=== PATIENT | female | born 1975 | race Hispanic/Latino ===

== ENCOUNTER 2016-07-28 14:03 | Inpatient (IN) | payer MEDICARE, MEDICAID ==
[2016-07-28 14:03] VITALS: BMI 24.6
[2016-07-28] MEDS ORDERED: Sodium Chloride 0.9% 1,000 ML IV STA (15:02)
--- NOTE | 2016-07-28 15:02 | ED PDOC ---
Arrival/HPI - General Chief Complaint: GI Problem Time Seen by Provider: 07/28/16 14:27 Historian: Patient - History of Present Illness Narrative History of Present Illness (Text): 07/28/16 14:52 40 y/o female, pmh including ulcerative colitis/chronic diarrhea/chronic GI bleed through rectum stool for the past 4 months, nkda, c/o feeling fatigue and tired for the past 2 days. Pt. stated that she has chronic ulcerative colitis diarrhea, always feeling fatigue but more fatigue and tired for the past 2 days which she stated that she almost pass out but didnt, no nausea or vomiting, no chest pain or shortness of breath, no palpitation, no night sweat, no bloody stool but admits heavy period lately, no fever or chills, no abdominal pain, no other medical or psychological complaints. Past Medical History - Provider Review Nursing Documentation Reviewed: Yes - Past History Past History: No Previous - Infectious Disease Hx of Infectious Diseases: None - Tetanus Immunization Tetanus Immunization: Unknown - Cardiac Hx Cardiac Disorders: No Hx Pacemaker: No - Pulmonary Hx Respiratory Disorders: No Hx Tuberculosis: No - Neurological Hx Neurological Disorder: No HX Cerebrovascular Accident: No Hx Migraine: No Hx Seizures: No - HEENT Hx HEENT Disorder: No Other/Comment: wears rx glasses - Renal Hx Renal Disorder: No - Endocrine/Metabolic Hx Endocrine Disorders: No Hx Hyperthyroidism: No Hx Hypothyroidism: No - Hematological/Oncological Hx Anemia: Yes (several years) Hx Cancer: No Hx Hepatitis A: No Hx Hepatitis B: No Hx Hepatitis C: No - Integumentary Hx Dermatological Disorder: No Other/Comment: tatoos - Musculoskeletal/Rheumatological Hx Herniated Disk: Yes (neck, 1 year ago) - Gastrointestinal Hx Colitis: Yes Other/Comment: colitis - 13 years, tried remicade, aprizo, asacol, humira, mercaptopurine stopped working after 1 yr - Genitourinary/Gynecological Hx Genitourinary Disorders: No Hx Sexually Transmitted Diseases: No - Psychiatric Hx Anxiety: Yes Hx Bipolar Disorder: Yes Hx Depression: Yes (13 years) Hx Emotional Abuse: No Hx Post Traumatic Stress Disorder: Yes (13 years ago) Hx Physical Abuse: No Hx Substance Use: No - Past Surgical History Past Surgical History: No Previous - Surgical History Hx Appendectomy: No Hx Section: Yes (2) Hx Orthopedic Surgery: Yes (bilateral feet, twisted, several years ago) Other/Comment: x2 - Anesthesia Hx Anesthesia: Yes Hx Anesthesia Reactions: No Hx Malignant Hyperthermia: No - Suicidal Assessment Feels Threatened In Home Enviroment: No Family/Social History - Physician Review Nursing Documentation Reviewed: Yes Family/Social History: Unknown Family HX Smoking Status: Never Smoked Hx Alcohol Use: No Hx Substance Use: No Substance used: PCP - 40 days ago from today 05/14/2016 Hx Substance Use Treatment: No Allergies/Home Meds Allergies/Adverse Reactions: Allergies No Known Allergies Allergy (Verified 07/28/16 14:17) Home Medications: Home Meds Medication Instructions Recorded Confirmed Mercaptopurine [6-Mp] 50 mg PO DAILY 03/21/14 07/28/16 Adalimumab [Humira] 40 mg SC Q14D 02/21/15 07/28/16 predniSONE [Prednisone] 30 mg PO DAILY 07/24/16 07/28/16 Mesalamine [Apriso] 0.375 gm PO DAILY 07/28/16 07/28/16 Review of Systems - Review of Systems Constitutional: Fatigue. absent: Fevers Eyes: absent: Vision Changes ENT: absent: Hearing Changes, Sore Throat, Rhinorrhea Respiratory: absent: Cough, Sputum, Wheezing Cardiovascular: absent: Chest Pain Gastrointestinal: Diarrhea. absent: Abdominal Pain, Nausea, Vomiting Musculoskeletal: absent: Arthralgias, Back Pain, Neck Pain, Joint Swelling, Myalgias Neurological: absent: Headache, Dizziness, Focal Weakness, Gait Changes, Speech Changes, Facial Droop, Disequilibrium, Seizure Physical Exam Vital Signs Reviewed: Yes Vital Signs Temp Pulse Resp BP Pulse Ox 07/28/16 21:24 85 16 07/28/16 20:58 99.0 F 85 16 124/60 98 07/28/16 20:57 99.0 F 85 16 122/63 98 07/28/16 20:21 98.9 F 85 16 122/68 07/28/16 19:36 99.3 F 85 16 108/70 07/28/16 19:20 99.6 F 88 16 131/70 07/28/16 14:12 98.4 F 100 H 18 112/73 96 Temperature: Afebrile Blood Pressure: Normal Pulse: Regular Respiratory Rate: Normal Appearance: Positive for: Ill-Appearing, Uncomfortable Pain Distress: None Mental Status: Positive for: Alert and Oriented X 3 - Systems Exam Head: Present: Atraumatic, Normocephalic Pupils: Present: PERRL Extroacular Muscles: Present: EOMI Conjunctiva: Present: Normal Mouth: Present: Moist Mucous Membranes Nose (External): Present: Atraumatic. No: Abrasion, Contusion, Laceration Nose (Internal): Present: Normal Inspection, No Active Bleeding. No: Rhinorrhea , Septal Hematoma, Epistaxis Neck: Present: Normal Range of Motion Respiratory/Chest: Present: Clear to Auscultation, Good Air Exchange. No: Respiratory Distress, Accessory Muscle Use Cardiovascular: Present: Regular Rate and Rhythm, Normal S1, S2. No: Murmurs Abdomen: Present: Normal Bowel Sounds. No: Tenderness, Distention, Peritoneal Signs, Rebound, Guarding Rectal: Present: Gross Blood, Hemorrhoids, Normal Rectal Tone, Other (guaiac positive from the bright red blood. ). No: Occult Blood, Rectal Tenderness, Melena, Fissures, Nodule/Mass/Lesions Back: Present: Normal Inspection Upper Extremity: Present: Normal Inspection. No: Cyanosis, Edema Lower Extremity: Present: Normal Inspection. No: Edema Neurological: Present: GCS=15, Speech Normal, Motor Func Grossly Intact, Gait Normal, Memory Normal Skin: Present: Warm, Dry, Normal Color. No: Rashes Psychiatric: Present: Alert, Oriented x 3, Normal Insight, Normal Concentration Medical Decision Making ED Course and Treatment: 07/28/16 15:09 -labs/ua/stool culture and c.diff/rapid flu -chest x-ray/ekg -IVF/pepcid -observe and reassess 07/28/16 16:02 -Hgb 7.8 and hct 25.6 which this is significant change, symptomatic, will transfuse with 1 unit and will order the ferrintin and TIBC as baseline. 07/28/16 16:29 -EKG: NSR @ 82 BPM, no ST elevation or depression, no T wave inversion, compared with previous ekg. -Chest x-ray show no active disease -Labs are non-significant except hgb 7.8 from 11.8, MCV 78.8, 1 unit of blood ordered with the ferritin/transferritin/TIBC as baseline along with anticoagulant. -High fall protocol risk ordered as well -Pt. refused the re-scan of the abdomen/pelvis as she has no abdominal pain plus afraid of the radiation. 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 has no active bleeding in the ER and the chronic hematochezia has been follow up with her own GI. -Pt. will need inpatient admission for symptomatic anemia, I will paged the pmd Dr. Alvarez for admission to tele for near syncope with anemia. 07/28/16 16:38 -I spoke to the PMD Dr. Alvarez about the case/labs/radiolgy studies, he wants the patient to be admitted to the hospitalist service or oncall doctor -Hospitalist paged. 07/28/16 16:44 -Dr. Murdock (hospitalist request manager operations and procurement drDanica which will be DR. Marina). -Dr. Marina paged and stated that he will call back in 30 minutes. 07/28/16 17:36 -I spoke to Dr. Marina and discussed about the labs which he request Dr. Burgess for routine consult. -I discussed the case with the ER attending DR. Rueda including labs/radiology results and Dr. Marina/Mathieu discussion, he will put in the admission order. - Lab Interpretations Lab Results: 07/29/16 07:30 07/29/16 07:30 Lab Results 07/29/16 07:30: WBC 7.6 D, RBC 3.79, Hgb 8.7 L, Hct 28.8 L, MCV 76.0 L, MCH 23.0 L, MCHC 30.2 L, RDW 17.2 H, Plt Count 505 H, MPV 8.2, Sodium 137, Potassium 3.5 L, Chloride 102, Carbon Dioxide 27, Anion Gap 12, BUN 10, Creatinine 0.9, Est GFR ( Amer) > 60, Est GFR (Non-Af Amer) > 60, Random Glucose 74, Calcium 8.4, Total Bilirubin 0.7, AST 29, ALT 21, Alkaline Phosphatase 77, Total Protein 6.5, Albumin 3.1, Globulin 3.4, Albumin/Globulin Ratio 0.9 L 07/29/16 07:00: Iron 233 H 07/28/16 17:15: PT 10.9, INR 1.01, APTT 28.9, Blood Type O POSITIVE, Antibody Screen Negative, Crossmatch See Detail, BBK History Checked Patient has bt 07/28/16 15:30: WBC 10.1 D, RBC 3.25 L, Hgb 7.8 L D, Hct 25.6 L, MCV 78.8 L, MCH 24.0 L, MCHC 30.5 L, RDW 15.0 H, Plt Count 539 H, MPV 8.1, Gran % 79.6 H, Lymph % (Auto) 10.9 L, [place] % (Auto) 9.0 H, Eos % (Auto) 0.4 L, Baso % (Auto) 0.1, Gran # 8.05 H, Lymph # 1.1 L, [place] # 0.9 H, Eos # 0.0, Baso # 0.01, Sodium 137, Potassium 4.1, Chloride 103, Carbon Dioxide 26, Anion Gap 12, BUN 13, Creatinine 0.8, Est GFR ( Amer) > 60, Est GFR (Non-Af Amer) > 60, Random Glucose 85, Calcium 8.8, TIBC 305, Transferrin 248.66, Ferritin 7.0, Total Bilirubin 0.5, AST 29, ALT 28, Alkaline Phosphatase 86, Lactate Dehydrogenase 317 L, Total Creatine Kinase < 20 L, Troponin I < 0.01, Total Protein 6.8, Albumin 3.1, Globulin 3.7, Albumin/Globulin Ratio 0.8 L, Lipase 31, Influenza Typ A,B (EIA) Negative for flu a/b 07/28/16 15:15: Urine Color Yellow, Urine Appearance Clear, Urine pH 6.0, Ur Specific [place] 1.025, Urine Protein Trace H, Urine Glucose (UA) Negative, Urine Ketones Negative, Urine Blood Negative, Urine Nitrate Negative, Urine Bilirubin Negative, Urine Urobilinogen 0.2, Ur Leukocyte Esterase Negative, Urine RBC 0 - 2, Urine WBC 0 - 2, Ur Epithelial Cells 3 - 4, Amorphous Sediment Few, Urine Bacteria Mod, Hyaline Casts 0 - 2, Fine Granular Casts 0 - 2 I have reviewed the lab results: Yes Interpretation: Abnormal lab values (hgb 7.8 from 11.8, MCV 78.8) - RAD Interpretation Radiology Orders: 07/28/16 15:03 CHEST PORTABLE [RAD] Stat 07/28/16 21:41 ABDOMEN & PELVIS [ABD & PELVIS W/O PO OR IV CONT] [CT] Urgent HISTORY: medical clearance COMPARISON: No prior. FINDINGS: LUNGS: No active pulmonary disease. PLEURA: No significant pleural effusion identified, no pneumothorax apparent. CARDIOVASCULAR: Normal. OSSEOUS STRUCTURES: No significant abnormalities. VISUALIZED UPPER ABDOMEN: Normal. OTHER FINDINGS: None. IMPRESSION: No active disease. Chief Passenger Ship Steward/Stewardess: Radiologist - EKG Interpretation EKG Interpretation (Text): 07/28/16 16:29 NSR @ 82 BPM, no ST elevation or depression, no T wave inversion, compared with previous ekg. Interpreted by ED Physician: Yes Type: 12 lead EKG Comparison: Com.w/previous EKG - Medication Orders Current Medication Orders: Pantoprazole Sodium (Protonix 40mg Ivpb) 100 mls @ 200 mls/hr IVPB 0600 KAREN Last Admin: 07/29/16 06:11 Dose: 200 MLS/HR eMAR Start Stop Document 07/29/16 06:11 RR (Rec: 07/29/16 06:12 RR [id number]) Intravenous Solution Start Date 07/29/16 Start Time 06:11 End Date 07/29/16 End time 06:41 Total Infusion Time 30 Sodium Chloride (Sodium Chloride 0.45%) 1,000 mls @ 30 mls/hr IV .Q24H KAREN Last Admin: 07/28/16 22:42 Dose: 30 MLS/HR eMAR Start Stop Document 07/28/16 22:42 RR (Rec: 07/28/16 22:42 RR [id number]) Intravenous Solution Start Date 07/28/16 Start Time 22:42 Metronidazole (Flagyl) 100 mls @ 100 mls/hr IVPB Q8 KAREN PRN Reason: Protocol Last Admin: 07/29/16 13:22 Dose: 100 MLS/HR eMAR Start Stop Document 07/29/16 13:22 MLK (Rec: 07/29/16 13:26 MLK [id number]) Intravenous Solution Start Date 07/29/16 Start Time 13:26 End Date 07/29/16 End time 14:26 Total Infusion Time 60 Ceftriaxone Sodium (Rocephin 1 Gram Ivpb) 100 mls @ 100 mls/hr IVPB DAILY KAREN PRN Reason: Protocol Stop: 08/05/16 10:01 Last Admin: 07/29/16 10:11 Dose: 100 MLS/HR eMAR Start Stop Document 07/29/16 10:11 MLK (Rec: 07/29/16 10:11 MLK [id number]) Intravenous Solution Start Date 07/29/16 Start Time 10:11 End Date 07/29/16 End time 11:11 Total Infusion Time 60 Morphine Sulfate (Morphine) 2 mg IVP Q3H PRN PRN Reason: Pain, severe (8-10) Last Admin: 07/29/16 16:05 Dose: 2 MG MAR Pain Assessment Document 07/29/16 16:05 MLK (Rec: 07/29/16 16:05 MLK [facility] [id number]) Pain Reassessment Is this a pain reassessment? No Presence of Pain Presence of Pain Yes Location Left, Right or Bilateral Right Pain Location Body Site Abdomen Description Description Intermittent Pain Behavior Facial Grimacing Alleviating Factors/Management Medication Techniques IVP Administration Document 07/29/16 16:05 MLK (Rec: 07/29/16 16:05 MLK [facility] [id number]) Charges for Administration # of IVP Administrations 1 Ondansetron HCl (Zofran Inj) 4 mg IVP Q6H PRN PRN Reason: Nausea/Vomiting Prednisone (Prednisone Tab) 30 mg PO DAILY KAREN Last Admin: 07/29/16 12:28 Dose: 30 MG Discontinued Medications Famotidine (Pepcid) 20 mg IVP STAT STA Stop: 07/28/16 15:03 Last Admin: 07/28/16 15:37 Dose: 20 MG IVP Administration Document 07/28/16 15:37 CLAIRE (Rec: 07/28/16 15:37 CLAIRE [facility] [place]-[id number]) Charges for Administration # of IVP Administrations 1 Furosemide (Lasix) 40 mg IVP STAT STA Stop: 07/28/16 20:12 Last Admin: 07/29/16 00:50 Dose: 40 MG MAR Blood Pressure Document 07/29/16 00:50 RR (Rec: 07/29/16 00:50 RR [id number]) Blood Pressure Blood Pressure (100/60-150/90) 115/65 IVP Administration Document 07/29/16 00:50 RR (Rec: 07/29/16 00:50 RR [id number]) Charges for Administration # of IVP Administrations 1 Sodium Chloride (Sodium Chloride 0.9%) 1,000 mls @ 999 mls/hr IV .Q1H1M STA Stop: 07/28/16 16:02 Last Admin: 07/28/16 15:30 Dose: 999 MLS/HR eMAR Start Stop Document 07/28/16 15:30 CLAIRE (Rec: 07/28/16 15:37 CLAIRE [facility] [id number]) Intravenous Solution Start Date 07/28/16 Start Time 15:30 End Date 07/28/16 End time 16:30 Total Infusion Time 60 Ciprofloxacin (Cipro 400mg/200ml Dsw) 200 mls @ 133.3 mls/hr IVPB Q12 KAREN PRN Reason: Protocol Stop: 07/29/16 03:31 Last Admin: 07/29/16 01:12 Dose: 133.3 MLS/HR eMAR Start Stop Document 07/29/16 01:12 RR (Rec: 07/29/16 01:14 RR [id number]) Intravenous Solution Start Date 07/29/16 Start Time 02:15 End Date 07/29/16 End time 03:45 Total Infusion Time 90 Iohexol (Omnipaque 350 100 Ml) Confirm Administered Dose 350 mg .ROUTE .STK-MED ONE Stop: 07/29/16 11:51 Morphine Sulfate (Morphine) 1 mg IVP Q3H PRN PRN Reason: Pain, severe (8-10) Last Admin: 07/29/16 07:22 Dose: 1 MG [facility] Pain Assessment Document 07/29/16 07:22 RR (Rec: 07/29/16 07:22 RR [id number]) Pain Reassessment Is this a pain reassessment? No Sleep Is patient sleeping during reassessment? No Presence of Pain Presence of Pain Yes Pain Scale Used Pain Scale Used Numeric Location Upper or Lower Lower Pain Location Body Site Abdomen Description Description Constant Intensity of Pain at present 8 Pain Behavior Facial Grimacing Alleviating Factors/Management Medication Techniques Alleviating Factors Medication IVP Administration Document 07/29/16 07:22 RR (Rec: 07/29/16 07:22 RR [id number]) Charges for Administration # of IVP Administrations 1 Re-Assess: AN Pain Assessment Document 07/29/16 08:22 MLK (Rec: 07/29/16 16:26 MLK [id number]) Pain Reassessment Is this a pain reassessment? 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 Disposition/Present on Arrival - Present on Arrival Any Indicators Present on Arrival: No History of DVT/PE: No History of Uncontrolled Diabetes: No Urinary Catheter: No History of Decub. Ulcer: No History Surgical Site Infection Following: None - Disposition Have Diagnosis and Disposition been Completed?: Yes Diagnosis: Fatigue, Anemia, Syncope, near, Hematochezia Disposition: HOSPITALIZED Disposition Time: 16:03 Patient Plan: Telemetry Patient Problems: Current Active Problems Problem Status Diagnosed Anemia Acute Fatigue Acute Hematochezia Acute Syncope, near Acute Condition: STABLE
[2016-07-28 15:46] LABS: ADD MANUAL DIFF? NO
[2016-07-28 15:55] LABS: BASO # 0.01 K/mm3 (0.0-2.0); BASO % 0.1 % (0.0-3.0); EOS % 0.4 % (1.5-5.0); GRAN # 8.05 (1.4-6.5); GRAN % 79.6 % (50.0-68.0); HEMATOCRIT 25.6 % (36.0-48.0); LYMPH # 1.1 (1.2-3.4); LYMPH % 10.9 % (22.0-35.0); MEAN CELL VOLUME 78.8 fL (80.0-105.0); MEAN CORPUSCULAR HGB CONC 30.5 g/dl (31.0-37.0); MEAN PLATELET VOLUME 8.1 fl (7.0-11.0); MONO # 0.9 (0.1-0.6); PLATELET COUNT 539 10^3/uL (120.0-450.0); WHITE BLOOD COUNT 10.1 10^3/ul (4.5-11.0)
[2016-07-28 16:02] LABS: ALB/GLOB RATIO 0.8 (1.1-1.8); ALKALINE PHOSPHATASE 86 U/L (38-133); ALT/SGPT 28 U/L (7-56); AST/SGOT 29 U/L (15-39); BILIRUBIN,TOTAL 0.5 mg/dL (0.2-1.3); BLOOD UREA NITROGEN 13 mg/dL (7-21); CALCIUM 8.8 mg/dL (8.4-10.5); CARBON DIOXIDE 26 mmol/L (21-33); CHLORIDE 103 mmol/L (98-107); GFR AFRICAN-AMERICAN > 60; GLUCOSE,RANDOM 85 mg/dL (70-110); LIPASE 31 U/L (23-300); POTASSIUM 4.1 mmol/L (3.6-5.0); SODIUM 137 mmol/L (132-148); TOTAL PROTEIN 6.8 g/dL (5.8-8.3)
[2016-07-28 16:12] LABS: URINE BILIRUBIN NEGATIVE (NEGATIVE); URINE BLOOD NEGATIVE (NEGATIVE); URINE GLUCOSE (UA) NEGATIVE (NEGATIVE); URINE KETONE NEGATIVE (NEGATIVE); URINE LEUKOCYTE ESTERASE NEGATIVE Leu/uL (NEGATIVE); URINE PROTEIN TRACE mg/dL (<30 mg/dL); URINE UROBILINOGEN 0.2 E.U./dL (<1 E.U./dL)
[2016-07-28 16:13] LABS: URINE APPEARANCE CLEAR (CLEAR); URINE COLOR YELLOW (YELLOW)
[2016-07-28 16:15] LABS: TROPONIN I < 0.01 ng/mL
[2016-07-28 16:18] LABS: URINE RBC 0 - 2 /hpf (0-2); URINE WBC 0 - 2 /hpf (0-6)
--- NOTE | 2016-07-28 16:18 | RAD ---
HISTORY: medical clearance COMPARISON: No prior. FINDINGS: LUNGS: No active pulmonary disease. PLEURA: No significant pleural effusion identified, no pneumothorax apparent. CARDIOVASCULAR: Normal. OSSEOUS STRUCTURES: No significant abnormalities. VISUALIZED UPPER ABDOMEN: Normal. OTHER FINDINGS: None. IMPRESSION: No active disease.
[2016-07-28 16:19] LABS: URINE AMORPHOUS SEDIMENT FEW; URINE BACTERIA MOD (NEG)
[2016-07-28 18:14] LABS: INR 1.01 (0.93-1.08); PARTIAL THROMBOPLASTIN TIME 28.9 Seconds (23.7-30.8)
--- NOTE | 2016-07-28 19:54 | CARD ---
APPROVED REPORT EKG Measurement Heart [id number] <Conclusion> Normal sinus rhythm Normal ECG
[2016-07-28] MEDS ORDERED: Sodium Chloride 0.45% 1,000 ML IV SCH (20:15)
[2016-07-28] MEDS: Morphine 2 mg/ml ISec IVP PRN (22:41)
[2016-07-29] MEDS: metroNIDAZOLE IV 500 mg/100 ml 100 ML IVPB SCH ×3 (01:12→21:43)
[2016-07-29] MEDS: Morphine 2 mg/ml ISec IVP PRN ×7 (01:28→22:59)
[2016-07-29] MEDS ORDERED: Ciprofloxacin 400mg/200ml D5W 200 ML IVPB SCH ×2 (02:00→10:00)
[2016-07-29] MEDS: Pantoprazole 40mg/100ml IVPB 100 ML IVPB SCH (06:11)
[2016-07-29 07:56] LABS: HEMATOCRIT 28.8 % (36.0-48.0); MEAN CORPUSCULAR HGB CONC 30.2 g/dl (31.0-37.0); MEAN PLATELET VOLUME 8.2 fl (7.0-11.0); RED CELL DISTRIBUTION WIDTH 17.2 % (11.5-14.5); WHITE BLOOD COUNT 7.6 10^3/ul (4.5-11.0)
[2016-07-29 08:09] LABS: ALB/GLOB RATIO 0.9 (1.1-1.8); ALKALINE PHOSPHATASE 77 U/L (38-133); ALT/SGPT 21 U/L (7-56); AST/SGOT 29 U/L (15-39); BILIRUBIN,TOTAL 0.7 mg/dL (0.2-1.3); BLOOD UREA NITROGEN 10 mg/dL (7-21); CALCIUM 8.4 mg/dL (8.4-10.5); CARBON DIOXIDE 27 mmol/L (21-33); CHLORIDE 102 mmol/L (95-110); GFR AFRICAN-AMERICAN > 60; GLUCOSE,RANDOM 74 mg/dL (70-110); POTASSIUM 3.5 mmol/L (3.6-5.0); SODIUM 137 mmol/L (132-148); TOTAL PROTEIN 6.5 g/dL (5.8-8.3)
--- NOTE | 2016-07-29 09:18 | CP.PCM.CON ---
<Cindy Nieto - Last Filed: 07/29/16 11:13> History of Present Illness - History of Present Illness History of Present Illness: Gastroenterology Fellow/PGY4 Consult Note 40 year old female with history of Ulcerative colitis diagnosed thirteen years prior, followed by Dr. Hall in the last year, presenting with lightheadedness, dizziness. Patient notes feeling of near syncope on Wednesday and wednesday leading to ER presentation last night. She associates this with having a low hemoglobin and likely requiring transfusions. She notes 11 prior pRBC transfusion on chart review from 2011 to 2013. On further questioning, states progressive weakness, fatigue, chronic diarrhea from 5-10 episodes daily with mucoid discharge, hematochezia and blood clots in setting of symptoms of ulcerative colitis. She does not worsening of these symptoms in the last four days associated with exacerbation of right lower abdomen pain, pain scale 8-9/10. Admits to intermittent aphthous ulcers. Denies joint pain, back pain, skin sores, kidney stones, or episcleritis. She notes prior therapy with Apriso, Asacol, Remicade, and most recently Humira and 6-MP for the last year to 1.5 years. Of note she stopped 6-MP in March due to noting hair loss without informing GI physician. Dr. Hall notes worsening diarrhea for the last month with instruction for prednisone taper that patient stated she could not afford at that time. Patient endorses recent initiation of prednisone taper, currently on week 2 at 30mg and Entyvio endorsed to have started on Wednesday. Family-extensive IBD history Maternal and Paternal side, notes paternal aunt- passed of complication's from Crohn's disease, parents healthy, great grandparant -colon cancer, unknown age of diagnosis Social-denies tobacco, alcohol, illicit drug use Surgery-none Review of Systems - Review of Systems Review of Systems: A 12-point review of systems negative except for as above Past Patient History - Infectious Disease Hx of Infectious Diseases: None - Tetanus Immunizations Tetanus Immunization: Unknown - Past Social History Smoking Status: Never Smoked - CARDIAC Hx Cardiac Disorders: No Hx Hypercholesterolemia: Yes Hx Pacemaker: No - PULMONARY Hx Respiratory Disorders: No Hx Tuberculosis: No - NEUROLOGICAL Hx Neurological Disorder: No HX Cerebrovascular Accident: No Hx Dizziness: Yes Hx Migraine: No Hx Seizures: No - HEENT Hx HEENT Problems: No Other/Comment: wears rx glasses - RENAL Hx Chronic Kidney Disease: No - ENDOCRINE/METABOLIC Hx Endocrine Disorders: No Hx Hyperthyroidism: No Hx Hypothyroidism: No - HEMATOLOGICAL/ONCOLOGICAL Hx Anemia: Yes (several years) Hx Cancer: No Hx Hepatitis A: No Hx Hepatitis B: No Hx Hepatitis C: No Other/Comment: multiple blood transfusions - INTEGUMENTARY Hx Dermatological Problems: No Other/Comment: tatoos - MUSCULOSKELETAL/RHEUMATOLOGICAL Hx Falls: No - GASTROINTESTINAL Hx Gastrointestinal Disorders: Yes (gi bleed) Other/Comment: colitis - 13 years, tried remicade, aprizo, asacol, humira, mercaptopurine stopped working after 1 yr - GENITOURINARY/GYNECOLOGICAL Hx Genitourinary Disorders: No Hx Sexually Transmitted Disorders: No Other/Comment: denies fibroids - PSYCHIATRIC Hx Substance Use: No - SURGICAL HISTORY Hx Appendectomy: No Hx Orthopedic Surgery: Yes (bilateral feet, twisted, several years ago) Other/Comment: x2, twisted metatarsals and bunyon sx to feet - ANESTHESIA Hx Anesthesia: Yes Hx Anesthesia Reactions: No Hx Malignant Hyperthermia: No Meds Allergies/Adverse Reactions: Allergies Allergy/AdvReac Type Severity Reaction Status Date / Time No Known Allergies Allergy Verified 07/28/16 14:17 - Medications Medications: Current Medications Pantoprazole Sodium (Protonix 40mg Ivpb) 100 mls @ 200 mls/hr IVPB 0600 [facility] Last Admin: 07/29/16 06:11 Dose: 200 mls/hr Sodium Chloride (Sodium Chloride 0.45%) 1,000 mls @ 30 mls/hr IV .Q24H [facility] Last Admin: 07/28/16 22:42 Dose: 30 mls/hr Metronidazole (Flagyl) 100 mls @ 100 mls/hr IVPB Q8 [facility] PRN Reason: Protocol Last Admin: 07/29/16 01:12 Dose: 100 mls/hr Ceftriaxone Sodium (Rocephin 1 Gram Ivpb) 100 mls @ 100 mls/hr IVPB DAILY [facility] PRN Reason: Protocol Stop: 08/05/16 10:01 Morphine Sulfate (Morphine) 2 mg IVP Q3H PRN PRN Reason: Pain, severe (8-10) Ondansetron HCl (Zofran Inj) 4 mg IVP Q6H PRN PRN Reason: Nausea/Vomiting Physical Exam - Constitutional Appears: Non-toxic, No Acute Distress - Head Exam Head Exam: ATRAUMATIC, NORMOCEPHALIC - Eye Exam Eye Exam: EOMI, PERRL Pupil Exam: PERRL. absent: Miosis, Mydriatic - ENT Exam ENT Exam: Mucous Membranes Moist, Normal Oropharynx - Neck Exam Neck exam: Positive for: Full Rom, Normal Inspection - Respiratory Exam Respiratory Exam: Clear to Auscultation Bilateral. absent: Rales, Rhonchi, Wheezes - Cardiovascular Exam Cardiovascular Exam: RRR, +S1, +S2. absent: Gallop, Rubs - GI/Abdominal Exam GI & Abdominal Exam: Normal Bowel Sounds, Soft, Tenderness. absent: Distended, Firm, Guarding, Organomegaly, Rebound, Rigid Additional comments: RLQ tenderness, boggy tissue - Extremities Exam Extremities exam: Positive for: full ROM. Negative for: pedal edema - Neurological Exam Neurological exam: Alert - Psychiatric Exam Psychiatric exam: Normal Affect, Normal Mood - Skin Skin Exam: Dry, Intact, Normal Color, Warm Results - Vital Signs Recent Vital Signs: Last Vital Signs Temp 99.3 F 07/28/16 22:47 Pulse 86 07/29/16 06:00 Resp 20 07/28/16 22:47 BP 115/65 07/29/16 00:50 Pulse Ox 98 07/28/16 20:58 - Labs Result Diagrams: 07/29/16 07:30 07/29/16 07:30 Assessment & Plan - Assessment and Plan (Free Text) Assessment: 40 year old female with history of Ulcerative colitis diagnosed thirteen years prior, followed by Dr. Hall in the last year, presenting with lightheadedness, dizziness. Patient notes feeling of near syncope on Wednesday and Wednesday leading to ER presentation last night. She notes similar symptoms in the past due to anemia requiring pRBC transfusions. History of eleven prior pRBC transfusions on chart review from 2011 to 2013, with lowest Hemoglobin of 5.6. Active treatment of symptomatic anemia in setting of chronic bloody diarrhea with history of ulcerative colitis. Colonoscopy 04/2015 showing continuous, circumferential inflammation, erythema, granularity, loss of vasculature, and pseudopolyps from rectum to proximal transverse colon. Pathology showing mild chronic inactive inflammation of cecum , transverse, descending, and sigmoid colon. Plan: >received 1U pRBC overnight -primary managing- likely plans for 2nd unit pRBC >continue prednisone taper- 30mg daily this week >pending stool culture, Cdiff >ordered CT A/P IV contrast >start altered GI diarrheal management diet >supportive care: IVFs, pain control >recommend stop antibiotics once Cdiff ruled out >further recommendations based on clinical course >will follow up with Dr. Hall on discharge for continued Ulcerative colitis management <[facility] - Last Filed: 07/29/16 11:35> Meds - Medications Medications: Current Medications Pantoprazole Sodium (Protonix 40mg Ivpb) 100 mls @ 200 mls/hr IVPB 0600 [facility] Last Admin: 07/29/16 06:11 Dose: 200 mls/hr Sodium Chloride (Sodium Chloride 0.45%) 1,000 mls @ 30 mls/hr IV .Q24H [facility] Last Admin: 07/28/16 22:42 Dose: 30 mls/hr Metronidazole (Flagyl) 100 mls @ 100 mls/hr IVPB Q8 [facility] PRN Reason: Protocol Last Admin: 07/29/16 01:12 Dose: 100 mls/hr Ceftriaxone Sodium (Rocephin 1 Gram Ivpb) 100 mls @ 100 mls/hr IVPB DAILY [facility] PRN Reason: Protocol Stop: 08/05/16 10:01 Last Admin: 07/29/16 10:11 Dose: 100 mls/hr Morphine Sulfate (Morphine) 2 mg IVP Q3H PRN PRN Reason: Pain, severe (8-10) Ondansetron HCl (Zofran Inj) 4 mg IVP Q6H PRN PRN Reason: Nausea/Vomiting Prednisone (Prednisone Tab) 30 mg PO DAILY [facility] Results - Vital Signs Recent Vital Signs: Last Vital Signs Temp 98.7 F 07/29/16 06:00 Pulse 82 07/29/16 06:00 Resp 20 07/29/16 06:00 BP 101/64 07/29/16 06:00 Pulse Ox 97 07/29/16 06:00 - Labs Result Diagrams: 07/29/16 07:30 07/29/16 07:30 Attending/Attestation - Attestation I have personally seen and examined this patient.: Yes I have fully participated in the care of the patient.: Yes I have reviewed all pertinent clinical information: Yes Notes (Text): 07/29/16 11:34 Patient seen and examined with GI fellow on rounds. This is a 40 year old female with history of Ulcerative colitis diagnosed thirteen years prior, followed by Dr. Hall in the last year, presenting with lightheadedness, dizziness in setting of symptomatic anemia. Colonoscopy 04/2015 showing continuous, circumferential inflammation, erythema, granularity, loss of vasculature, and pseudopolyps from rectum to proximal transverse colon. Pathology showing mild chronic inactive inflammation of cecum, transverse, descending, and sigmoid colon. has been on steroid taper for past two weeks. Will send stool infectious work up. No s/s of sepsis. Supportive care with IVF. To follow with Dr. Hall on discharge for continued Ulcerative colitis management
--- NOTE | 2016-07-29 09:38 | HP ---
I got a call from the Emergency Room yesterday about a young lady who was feeling very dizzy and ligh theaded. She apparently ended up having a very low hemoglobin and we ended up having to transfer her last night. I see her in her bed this morning. She is still very uncomfortable, still with abdomin al pain and not feeling well, does not have any appetite and feels a little nauseous. She is a 40-ye ar-old female who presents with fatigue, dizziness. PAST MEDICAL HISTORY: Ulcerative colitis, chronic diarrhea, chronic gastrointestinal bleeds. She fe els like it is coming on again. She has been very tired, almost passed out. No nausea or vomiting a t this time. No chest pain, no shortness of breath. She does have heavy periods lately, but this is her baseline she tells me for her colitis. She wears glasses. She had anemia several years ago. S he has tattoos. She has a herniated disk in her neck. It is old. She has colitis. She has tried R emicade, Apriso, Asacol, Humira, mercaptopurine. She has anxiety, bipolar disorder, depression. She had 2 C-sections, bilateral feet surgery. They were twisted. FAMILY HISTORY: No known family history. Never smoked, no alcohol. PCP 40 days ago, drugs. ALLERGIES: No known drug allergies. She takes Apriso, mercaptopurine, Humira and prednisone in the past. REVIEW OF SYSTEMS: No changes in vision or hearing. No sore throat. No coughing, no chest pain. T here is diarrhea. She did not notice any blood. There is abdominal pain. A little nauseous. No ba ck pain at this time. No headache or dizziness. She is weak. PHYSICAL EXAMINATION: VITAL SIGNS: She has 98.4 temp, 100 pulse, 18 respiratory rate, 112/73 blood pressure, 96% O2 sat. GENERAL: She is ill appearing, uncomfortable, just not herself. HEENT: Head is atraumatic, normocephalic. Extraocular muscles are intact. Pupils equally reactive to light. Throat is moist, no erythema. NECK: Supple, no JVD. LUNGS: Have decreased breath sounds, but clear to auscultation. No wheezes, no rhonchi, no rales. HEART: Regular rate. Normal S1, S2. ABDOMEN: Mildly distended. There are decreased bowel sounds. No guarding, no rebound. RECTAL: There was gross blood and hemorrhoids in the ER. BACK: No back pain at this time. EXTREMITIES: No extremity edema. NEUROLOGIC: GCS is 15. Speech is normal. Cranial nerves II-XII grossly intact. SKIN: For the most part is warm and dry. PSYCHIATRIC: Alert and oriented x 3. LYMPHATIC: Thyroid midline. No palpable lymphadenopathy. She has a CAT scan of the abdomen and pelvis that is pending. The chest x-ray is clear. LABORATORY DATA: She has a white count of 10.1, hemoglobin 7.8, hematocrit 25.6, platelets of 539. INR is 1.01. She has a 137 sodium, potassium 4.1, BUN 13, creatinine 0.8, GFR is greater than 60, olmedo gar is 85, calcium is 8.8. Total iron binding capacity is 305, ferritin is 7. Total bili is 0.5, T is 29, ALT is 28, alkaline phosphatase 86. Troponin is less than 0.01. Total protein 6.8. Lipase is 31. Urine is moderate bacteria. Negative for influenza. There are orders for a consult with GI and infectious disease. She is on IV fluids, Flagyl, morphine , Pepcid, Protonix, Rocephin, Zofran. I made her an inpatient today because she just does not look w ell. I am waiting for the labs to populate this morning to see if she is going to need any more scruggs sfusions. She is here for gastrointestinal bleed, anemia, dizziness, possible colitis. I will keep her n.p.o., IV antibiotics. Murali Marina DO cc: [id number] TT: 07/29/2016 09:38:03 en
[2016-07-29] MEDS: cefTRIAXone 1 gm 100 ML IVPB SCH (10:11)
--- NOTE | 2016-07-29 11:29 | CT ---
PROCEDURE: CT Abdomen and pelvis dated 07/28/2016. HISTORY: Abd Pain, Hx GI Bleed COMPARISON: Comparison made with CT scan of the abdomen and pelvis dated 03/04/2016. TECHNIQUE: Contiguous axial images of the abdomen and pelvis. Oral contrast was administered. No IV contrast given. Coronal and Sagittal reformats generated. Radiation dose: Total exam DLP = 231.18 mGy-cm. This CT exam was performed using one or more of the following dose reduction techniques: Automated exposure control, adjustment of the mA and/or kV according to patient size, and/or use of iterative reconstruction technique. FINDINGS: LOWER THORAX: Mild bibasilar atelectasis. No effusion or basilar pneumothorax. There is a small hiatal hernia with slight wall thickening of the distal esophagus that could be due to protrusion of gastric mucosa. Possibility of esophagitis or other intrinsic/invasive wall lesion cannot be excluded. Clinical correlation recommended. Followup endoscopy may be prudent if clinically indicated. LIVER: The liver exhibits normal size measuring approximately 16 cm in CC dimension. No obvious hepatic mass collection or calcification. GALLBLADDER AND BILE DUCTS: Gallbladder is physiologically distended. No intraluminal gallbladder calculi. PANCREAS: The visualized portions of the pancreas appear unremarkable without mass collection or calcification. No significant pancreatic ductal dilatation. SPLEEN: Spleen is normal in small to medium-sized mesenteric lymph nodes left upper quadrant of the abdomen. On lymph nodes ADRENALS: No adrenal lesions. KIDNEYS AND URETERS: Kidneys exhibit relatively symmetric size. There is small approximately 2.9 mm calcification lower pole left kidney and a smaller calcifications seen midpole left kidney and a smaller approximately. . No evidence of hydronephrosis. BLADDER: Urinary bladder is incompletely which may account for slight thick-walled appearance. The possibility of a cystitis cannot be excluded. No evidence of intraluminal urinary bladder calculi. . REPRODUCTIVE: Unremarkable as visualized. APPENDIX: Normal-appearing vermiform the appendix of best seen on coronal image number [id number]. BOWEL: The the evaluation the bowel is limited due to the lack of oral contrast material. Mural wall thickening of most of the colon again noted beginning (most notably affecting the distal ascending colon) consistent with a nonspecific colitis. There is relative sparing of the redundant cecum which is located in the mid anterior abdomen and contains a moderate amount of stool and air ; this could be due to constipation with functional partial obstruction due to the at aforementioned inflammatory changes of most of the remaining. The cecum measures nearly 9 cm in greatest dimension which is at risk for perforation. PERITONEUM: No free intraperitoneal air or free fluid LYMPH NODES: Unremarkable. No enlarged lymph nodes. VASCULATURE: Unremarkable. No aortic aneurysm. BONES: Collections seen. The osseous structures appear grossly intact. OTHER FINDINGS: None. IMPRESSION: Findings consistent with a nonspecific colitis with some relative sparing of a redundant stool and air-filled cecum. Rule out functional partial out of rule out obstruction. Note that the cecum measures nearly 9 cm in greatest transverse dimension which is at risk for perforation Tiny nonobstructing calculi left kidney as above. Mild bibasilar atelectasis. See above discussion for additional findings and details.
[2016-07-29] MEDS ORDERED: Iohexol 350 MG/100 ML VIAL ONE (11:50)
--- NOTE | 2016-07-29 13:38 | CT ---
PROCEDURE: CT abdomen and pelvis dated 07/29/2016. . HISTORY: abdominal pain, colitis COMPARISON: TheComparison made with the noncontrast CT scan abdomen and pelvis dated 07/28/2016. TECHNIQUE: Contiguous axial images of the abdomen and pelvis. Oral contrast was administered. No IV contrast given. Coronal and Sagittal reformats generated. Radiation dose: Total exam DLP = the the the the 231 mGy-cm. This CT exam was performed using one or more of the following dose reduction techniques: Automated exposure control, adjustment of the mA and/or kV according to patient size, and/or use of iterative reconstruction technique. FINDINGS: LOWER THORAX: Minimal bibasilar atelectasis. No focal consolidation effusion or basilar pneumothorax. Heart size is within range of normal. No significant pericardial effusion. . Small hiatal hernia with wall thickening of the distal esophagus likely due to protrusion of gastric mucosa. Possibility of esophagitis or other intrinsic wall lesion not excluded. Clinical correlation recommended. Followup endoscopy may be prudent if clinically indicated. LIVER: The liver exhibits normal size unchanged from prior study. No enhancing masses or collections. Portal and splenic veins are opacified. GALLBLADDER AND BILE DUCTS: Gallbladder is physiologically distended. No evidence of intraluminal gallbladder calculi. PANCREAS: The pancreatic duct is visible lobe does not appear significantly dilated. No obvious pancreatic mass or collection. SPLEEN: Spleen exhibits normal size and attenuation pattern without mass collection or calcification. ADRENALS: No adrenal masses. KIDNEYS AND URETERS: Kidneys exhibit symmetric nephrograms. Re- demonstrated is a punctate calcification in the mid pole left kidney with a small approximately 2.9 mm calcification lower pole left kidney. Small elliptical shaped low-attenuation posterior lateral aspect midpole left kidney likely representing a small cyst on more obvious on this study due to the presence of a circulating intravenous contrast material. Followup renal ultrasound could confirm. BLADDER: The urinary bladder is incompletely distended which may account for minimal wall thickening of. Cystitis not excluded. REPRODUCTIVE: Unremarkable as visualized. APPENDIX: No evidence of acute appendicitis. BOWEL: Evaluation of the bowel is limited due to the lack of oral contrast material. The stomach is underdistended which presumably accounts for thick-walled appearance. Gastritis not excluded. Visualized loops of small bowel exhibit normal contour and caliber. No evidence of acute mechanical small bowel obstruction. Re- demonstrated is mural wall thickening the of the at descending, sigmoid and to a lesser degree transverse colon consistent with colitis. Mild infiltration changes are seen within the adjacent pericolonic mesenteries. Moderate amount of stool is also again noted within cecum and at ascending colon consistent with constipation note that the cecum appears less distended compared the prior study PERITONEUM: . No evidence of free intraperitoneal air. LYMPH NODES: No significant adenopathy. VASCULATURE: Unremarkable. No aortic aneurysm. BONES: No fracture or destructive lesion. OTHER FINDINGS: None. IMPRESSION: Findings consistent with colitis ; rule out infectious versus inflammatory etiologies. Moderate amount of stool within the cecum and ascending colon consistent with constipation. Nonobstructing calculi left kidney. Small left renal cyst. Followup renal ultrasound could be performed to confirm.
--- NOTE | 2016-07-29 18:04 | CP.PCM.CON ---
History of Present Illness - History of Present Illness History of Present Illness: 40 year old female with PMH of ulcerative colitis has been having chronic loose diarrhea for the past 3-4 months with occasional blood in stool. In the past 2- 3 days, she has noticed more fatigue and generalized weakness associated with increased diarrhea and blood in the stool. She also had some lightheadedness. She denies fever or chills, no nausea or vomiting, no chest pain , no SOB, no cough or colds, no dysuria, occasional abdominal cramps, no sore throat, no dysphagia. She has not eaten anything out of the ordinary, has not had travel outside of [place] in the past 3 months. Infectious diseases consult is requested to further evaluate and manage. Review of Systems - Review of Systems All systems: reviewed and no additional remarkable complaints except (as per HPI ) Past Patient History - Infectious Disease Hx of Infectious Diseases: None - Tetanus Immunizations Tetanus Immunization: Unknown - Past Medical History & Family History Past Medical History?: Yes Past Family History: Reviewed and not pertinent - Past Social History Smoking Status: Never Smoked Alcohol: None Drugs: Denies Home Situation {Lives}: With Family - CARDIAC Hx Cardiac Disorders: No Hx Hypercholesterolemia: Yes Hx Pacemaker: No - PULMONARY Hx Respiratory Disorders: No Hx Tuberculosis: No - NEUROLOGICAL Hx Neurological Disorder: No HX Cerebrovascular Accident: No Hx Dizziness: Yes Hx Migraine: No Hx Seizures: No - HEENT Hx HEENT Problems: No Other/Comment: wears rx glasses - RENAL Hx Chronic Kidney Disease: No - ENDOCRINE/METABOLIC Hx Endocrine Disorders: No Hx Hyperthyroidism: No Hx Hypothyroidism: No - HEMATOLOGICAL/ONCOLOGICAL Hx Anemia: Yes (several years) Hx Cancer: No Hx Hepatitis A: No Hx Hepatitis B: No Hx Hepatitis C: No Other/Comment: multiple blood transfusions - INTEGUMENTARY Hx Dermatological Problems: No Other/Comment: tatoos - MUSCULOSKELETAL/RHEUMATOLOGICAL Hx Falls: No - GASTROINTESTINAL Hx Gastrointestinal Disorders: Yes (gi bleed) Other/Comment: colitis - 13 years, tried remicade, aprizo, asacol, humira, mercaptopurine stopped working after 1 yr - GENITOURINARY/GYNECOLOGICAL Hx Genitourinary Disorders: No Hx Sexually Transmitted Disorders: No Other/Comment: denies fibroids - PSYCHIATRIC Hx Substance Use: No - SURGICAL HISTORY Hx Appendectomy: No Hx Orthopedic Surgery: Yes (bilateral feet, twisted, several years ago) Other/Comment: x2, twisted metatarsals and bunyon sx to feet - ANESTHESIA Hx Anesthesia: Yes Hx Anesthesia Reactions: No Hx Malignant Hyperthermia: No Meds Allergies/Adverse Reactions: Allergies Allergy/AdvReac Type Severity Reaction Status Date / Time No Known Allergies Allergy Verified 07/28/16 14:17 - Medications Medications: Current Medications Pantoprazole Sodium (Protonix 40mg Ivpb) 100 mls @ 200 mls/hr IVPB 0600 [facility] Sodium Chloride (Sodium Chloride 0.45%) 1,000 mls @ 30 mls/hr IV .Q24H [facility] Last Admin: 07/28/16 22:42 Dose: 30 mls/hr Metronidazole (Flagyl) 100 mls @ 100 mls/hr IVPB Q8 [facility] PRN Reason: Protocol Last Admin: 07/29/16 01:12 Dose: 100 mls/hr Ceftriaxone Sodium (Rocephin 1 Gram Ivpb) 100 mls @ 100 mls/hr IVPB DAILY [facility] PRN Reason: Protocol Stop: 08/05/16 10:01 Morphine Sulfate (Morphine) 1 mg IVP Q3H PRN PRN Reason: Pain, severe (8-10) Last Admin: 07/29/16 04:45 Dose: 1 mg Physical Exam - Constitutional Appears: Non-toxic, No Acute Distress - Head Exam Head Exam: NORMAL INSPECTION - ENT Exam ENT Exam: Mucous Membranes Moist - Neck Exam Neck exam: Negative for: Lymphadenopathy, Meningismus - Respiratory Exam Respiratory Exam: Decreased Breath Sounds - Cardiovascular Exam Cardiovascular Exam: +S1, +S2 - GI/Abdominal Exam GI & Abdominal Exam: Soft. absent: Tenderness Results - Vital Signs Recent Vital Signs: Last Vital Signs Temp 99.3 F 07/28/16 22:47 Pulse 79 07/29/16 02:00 Resp 20 07/28/16 22:47 BP 115/65 07/29/16 00:50 Pulse Ox 98 07/28/16 20:58 - Labs Result Diagrams: 07/29/16 07:30 07/29/16 07:30 Assessment & Plan - Assessment and Plan (Free Text) Plan: Assessment Consider acute exacerbation of ulcerative colitis Plan Started patient on Ceftriaxone and Flagyl pending blood and stool cx; follow up stool for Cdiff Follow up GI evaluation and recommendations Will follow clinically
[2016-07-30] MEDS: Morphine 2 mg/ml ISec IVP PRN ×2 (02:17→07:48)
[2016-07-30] MEDS: Pantoprazole 40mg/100ml IVPB 100 ML IVPB SCH (05:14)
[2016-07-30] MEDS: metroNIDAZOLE IV 500 mg/100 ml 100 ML IVPB SCH (05:14)
--- NOTE | 2016-07-30 07:20 | CP.PCM.PN ---
<Cindy Nieto - Last Filed: 07/30/16 09:04> Subjective - Date & Time of Evaluation Date of Evaluation: 07/30/16 Time of Evaluation: 07:16 - Subjective Subjective: Gastroenterology Fellow/PGY4 Progress Note Patient notes improving right lower abdomen pain, pain scale 5/10. Admits to improving weakness. Resolved lightheadedness. Notes two episodes of diarrhea overnight without hematochezia. A 12-point review of systems negative except for as above. Objective - Vital Signs/Intake and Output Vital Signs (last 24 hours): Temp Pulse Resp BP Pulse Ox 98.3 F 63 20 104/66 97 07/29/16 16:00 07/30/16 06:00 07/30/16 00:00 07/30/16 00:00 07/29/16 16:00 Intake and Output: 07/30/16 07/30/16 06:59 18:59 Intake Total 1020 Balance 1020 - Medications Medications: Current Medications Pantoprazole Sodium (Protonix 40mg Ivpb) 100 mls @ 200 mls/hr IVPB 0600 [facility] Last Admin: 07/30/16 05:14 Dose: 200 mls/hr Sodium Chloride (Sodium Chloride 0.45%) 1,000 mls @ 30 mls/hr IV .Q24H [facility] Last Admin: 07/28/16 22:42 Dose: 30 mls/hr Metronidazole (Flagyl) 100 mls @ 100 mls/hr IVPB Q8 [facility] PRN Reason: Protocol Last Admin: 07/30/16 05:14 Dose: 100 mls/hr Ceftriaxone Sodium (Rocephin 1 Gram Ivpb) 100 mls @ 100 mls/hr IVPB DAILY [facility] PRN Reason: Protocol Stop: 08/05/16 10:01 Last Admin: 07/29/16 10:11 Dose: 100 mls/hr Morphine Sulfate (Morphine) 2 mg IVP Q3H PRN PRN Reason: Pain, severe (8-10) Last Admin: 07/30/16 02:17 Dose: 2 mg Ondansetron HCl (Zofran Inj) 4 mg IVP Q6H PRN PRN Reason: Nausea/Vomiting Prednisone (Prednisone Tab) 30 mg PO DAILY [facility] Last Admin: 07/29/16 12:28 Dose: 30 mg - Labs Labs: PT 10.9 Seconds (9.9-11.8) 07/28/16 17:15 INR 1.01 (0.93-1.08) 07/28/16 17:15 APTT 28.9 Seconds (23.7-30.8) 07/28/16 17:15 - Constitutional Appears: Non-toxic, No Acute Distress - Head Exam Head Exam: ATRAUMATIC, NORMOCEPHALIC - Eye Exam Eye Exam: EOMI, PERRL Pupil Exam: PERRL. absent: Miosis, Mydriatic - ENT Exam ENT Exam: Mucous Membranes Moist, Normal Oropharynx - Neck Exam Neck Exam: Full ROM, Normal Inspection - Respiratory Exam Respiratory Exam: Clear to Ausculation Bilateral. absent: Rales, Rhonchi, Wheezes - GI/Abdominal Exam GI & Abdominal Exam: Soft, Tenderness, Normal Bowel Sounds. absent: Distended, Firm, Guarding, Rigid, Organomegaly, Rebound Additional comments: RLQ tenderness to palpation - Extremities Exam Extremities Exam: Full ROM. absent: Pedal Edema - Neurological Exam Neurological Exam: Alert, Awake - Psychiatric Exam Psychiatric exam: Normal Affect, Normal Mood - Skin Skin Exam: Dry, Intact, Normal Color, Warm Assessment and Plan - Assessment and Plan (Free Text) Assessment: 40 year old female with history of Ulcerative colitis diagnosed thirteen years prior, followed by Dr. Hall in the last year, presenting with lightheadedness, dizziness. Patient notes feeling of near syncope on Wednesday and Wednesday leading to ER presentation last night. She notes similar symptoms in the past due to anemia requiring pRBC transfusions. History of eleven prior pRBC transfusions on chart review from 2011 to 2013, with lowest Hemoglobin of 5.6. Active treatment of symptomatic anemia in setting of chronic bloody diarrhea with history of ulcerative colitis. Colonoscopy 04/2015 showing continuous, circumferential inflammation, erythema, granularity, loss of vasculature, and pseudopolyps from rectum to proximal transverse colon. Pathology showing mild chronic inactive inflammation of cecum , transverse, descending, and sigmoid colon. Plan: >stable H/H,s/p 1U pRBC on admission >continue prednisone taper- 30mg daily this week >CT A/P IV contrast-redemonstration of transverse, descending,sigmoid ulcerative colitis >pending stool culture, Cdiff >recommend stop antibiotics in setting of UC flare >continue altered GI diarrheal management diet >would benefit from scheduled iron supplementation, improve bioavailability via IV route with chronic inflammatory state -will discuss with Dr. Hall for continued scheduling outpatient >will follow up with Dr. Hall on discharge for continued ulcerative colitis management <Michelle James - Last Filed: 07/30/16 09:31> Objective - Vital Signs/Intake and Output Vital Signs (last 24 hours): Temp Pulse Resp BP Pulse Ox 98.3 F 63 20 104/66 97 07/29/16 16:00 07/30/16 06:00 07/30/16 00:00 07/30/16 00:00 07/29/16 16:00 Intake and Output: 07/30/16 07/30/16 06:59 18:59 Intake Total 1020 0 Balance 1020 0 - Medications Medications: Current Medications Pantoprazole Sodium (Protonix 40mg Ivpb) 100 mls @ 200 mls/hr IVPB 0600 [facility] Last Admin: 07/30/16 05:14 Dose: 200 mls/hr Sodium Chloride (Sodium Chloride 0.45%) 1,000 mls @ 30 mls/hr IV .Q24H [facility] Last Admin: 07/28/16 22:42 Dose: 30 mls/hr Metronidazole (Flagyl) 100 mls @ 100 mls/hr IVPB Q8 [facility] PRN Reason: Protocol Last Admin: 07/30/16 05:14 Dose: 100 mls/hr Ceftriaxone Sodium (Rocephin 1 Gram Ivpb) 100 mls @ 100 mls/hr IVPB DAILY [facility] PRN Reason: Protocol Stop: 08/05/16 10:01 Last Admin: 07/29/16 10:11 Dose: 100 mls/hr Morphine Sulfate (Morphine) 2 mg IVP Q3H PRN PRN Reason: Pain, severe (8-10) Last Admin: 07/30/16 07:48 Dose: 2 mg Ondansetron HCl (Zofran Inj) 4 mg IVP Q6H PRN PRN Reason: Nausea/Vomiting Prednisone (Prednisone Tab) 30 mg PO DAILY [facility] Last Admin: 07/29/16 12:28 Dose: 30 mg - Labs Labs: 07/30/16 07:00 07/30/16 07:00 PT 10.9 Seconds (9.9-11.8) 07/28/16 17:15 INR 1.01 (0.93-1.08) 07/28/16 17:15 APTT 28.9 Seconds (23.7-30.8) 07/28/16 17:15 Attending/Attestation - Attestation I have personally seen and examined this patient.: Yes I have fully participated in the care of the patient.: Yes I have reviewed all pertinent clinical information, including history, physical exam and plan: Yes Notes (Text): Patient seen and examined with GI fellow. Agree with her note as documented above with the following additions/exceptions. This is a 40 year old female with h/o ulcerative pancolitis on induction dose vedolizumab who is admitted with symptomatic anemia. She is s/p PRBC transfusion with improvement in HB/ HCT and symptoms. She feels better today, admits to mild abdominal discomfort and 2 loose, non bloody stools yesterday. Recommend low residue diet, prednisone 30mg daily. Follow up stool studies. She may benefit from outpatient IV iron therapy. She will need to follow up with Dr. Hall as outpatient for continued management of ulcerative colitis/vedolizumab infusion. 07/30/16 09:28
[2016-07-30 07:37] LABS: HEMATOCRIT 31.5 % (36.0-48.0); MEAN CELL VOLUME 76.3 fL (80.0-105.0); MEAN CORPUSCULAR HGB CONC 30.2 g/dl (31.0-37.0); MEAN PLATELET VOLUME 8.3 fl (7.0-11.0); RED CELL DISTRIBUTION WIDTH 16.8 % (11.5-14.5)
[2016-07-30 07:50] LABS: ALB/GLOB RATIO 0.9 (1.1-1.8); ALKALINE PHOSPHATASE 82 U/L (38-133); ALT/SGPT 31 U/L (7-56); AST/SGOT 33 U/L (15-39); BILIRUBIN,TOTAL 0.5 mg/dL (0.2-1.3); BLOOD UREA NITROGEN 14 mg/dL (7-21); CALCIUM 8.7 mg/dL (8.4-10.5); CARBON DIOXIDE 29 mmol/L (21-33); CHLORIDE 102 mmol/L (98-107); GFR AFRICAN-AMERICAN > 60; GLUCOSE,RANDOM 84 mg/dL (70-110); POTASSIUM 3.7 mmol/L (3.6-5.0); SODIUM 136 mmol/L (132-148); TOTAL PROTEIN 6.4 g/dL (5.8-8.3)
[2016-07-30 09:41] VITALS: BP 96/56; RESP 18; TEMP 97.8; O2SAT 96
[2016-07-30] MEDS: cefTRIAXone 1 gm 100 ML IVPB SCH (10:07)
--- NOTE | 2016-07-30 10:31 | DS ---
She is doing better this morning. She slept well. She is eating some, from GI. She is moving her b owels. The pain is less. She is comfortable. MEDICATIONS: She is currently on IV fluids, IV metronidazole, morphine, pantoprazole, IV Rocephin, Z ofran, and prednisone. She will be on a prednisone taper. PHYSICAL EXAMINATION: VITAL SIGNS: Temp 98.3, 94 pulse to 84 pulse, 104/66 blood pressure, 20 respiratory rate, 97% O2 sat on room air. HEAD: Atraumatic, normocephalic. HEART: Regular rate. LUNGS: Clear to auscultation. ABDOMEN: Soft, positive bowel sounds, nontender now. EXTREMITIES: No edema. LABORATORY DATA: She has a white count of 10, hemoglobin 9.5, hematocrit 31.5, platelets 567. She h as a 136 sodium, potassium 3.7. BUN is 14, creatinine 0.9. GFR is greater than 60. Sugar is 84. C alcium is 8.7. Total bili is 0.5. AST is 33. ALT is 32. Alk phos 82. Total protein 6.4. PLAN: The plan is for her to be discharged today. She is going to get an ultrasound of her kidneys today because she does have kidney stones, that will have to be followed up on the outpatient. She w ill follow up with Dr. Hall on the outpatient, who is her water carter. I will put her on her regular medications, and hopefully, she will do well. Murali Marina DO cc: [phone] TT: 07/30/2016 10:31:04 deng
[2016-07-30 11:56] VITALS: PULSE 83
[2016-07-30] MEDS ORDERED: Oxycodone/Acetaminophen 5/325 mg Tab PO STA (12:23)
--- NOTE | 2016-07-30 12:50 | US ---
PROCEDURE: Ultrasound of the Kidneys HISTORY: r/o hydro COMPARISON: None available. TECHNIQUE: Sonogram of the kidneys. FINDINGS: RIGHT KIDNEY: Measures: 10.6 cm. Normal in size, contour and echogenicity. No calculus or hydronephrosis. No mass. LEFT KIDNEY: Measures: 10.9 cm. Normal in size, contour and echogenicity. Simple lower pole cortical cyst, 1.6 x 1.0 x 1.0 cm. No other mass. No calculus or hydronephrosis. OTHER FINDINGS: None. IMPRESSION: No evidence of hydronephrosis. 1.6 cm simple cortical cyst lower pole left kidney. Otherwise unremarkable examination.
--- NOTE | 2016-07-30 19:20 | CP.PCM.PN ---
Subjective - Date & Time of Evaluation Date of Evaluation: 07/30/16 Time of Evaluation: 09:40 - Subjective Subjective: Comfortable in bed, not in distress. Objective - Vital Signs/Intake and Output Vital Signs (last 24 hours): Temp Pulse Resp BP Pulse Ox 97.8 F 83 18 96/56 L 96 07/30/16 06:00 07/30/16 10:00 07/30/16 06:00 07/30/16 06:00 07/30/16 06:00 Intake and Output: 07/30/16 07/31/16 18:59 06:59 Intake Total 600 Balance 600 - Labs Labs: 07/30/16 07:00 07/30/16 07:00 PT 10.9 Seconds (9.9-11.8) 07/28/16 17:15 INR 1.01 (0.93-1.08) 07/28/16 17:15 APTT 28.9 Seconds (23.7-30.8) 07/28/16 17:15 - Constitutional Appears: Non-toxic, No Acute Distress - Head Exam Head Exam: NORMAL INSPECTION - Neck Exam Neck Exam: absent: Lymphadenopathy, Meningismus - Respiratory Exam Respiratory Exam: Decreased Breath Sounds - Cardiovascular Exam Cardiovascular Exam: +S1, +S2 - GI/Abdominal Exam GI & Abdominal Exam: Soft. absent: Tenderness Assessment and Plan - Assessment and Plan (Free Text) Plan: Assessment Consider acute exacerbation of ulcerative colitis, slowly improving Plan on Ceftriaxone and Flagyl (day 2); stool for Cdiff is negative Follow up GI evaluation and recommendations
== END 2016-07-30 15:23 | disposition home or self-care (01) | DRG 387 ==
LOC: ED 14:03 → ERH 17:35 → 3RNO 21:34 → OBSVTOIN 07-29 08:33
PROVIDERS: ADMIT Family Medicine; ATTEND Family Medicine
PROC: 30233N1 Transfusion of Nonautologous Red Blood Cells into Peripheral Vein, Percutaneous Approach (ICD-10-PCS; principal; 2016-07-28)
DX: K51.911 Ulcerative colitis, unspecified with rectal bleeding (principal); D64.9 Anemia, unspecified; M50.20 Other cervical disc displacement, unspecified cervical region; N20.0 Calculus of kidney; K12.0 Recurrent oral aphthae; R55 Syncope and collapse; R42 Dizziness and giddiness; F31.9 Bipolar disorder, unspecified; F41.9 Anxiety disorder, unspecified

== ENCOUNTER 2017-04-02 21:51 | Emergency (ER) | payer MEDICARE, MEDICAID ==
[2017-04-02 22:19] VITALS: TEMP 98.5; BMI 26.6
[2017-04-02] MEDS ORDERED: Oxycodone/Acetaminophen 5/325 mg Tab PO STA (22:29)
--- NOTE | 2017-04-02 22:33 | ED PDOC ---
Arrival/HPI - General Chief Complaint: Back Pain Time Seen by Provider: 04/02/17 22:27 Historian: Patient - History of Present Illness Narrative History of Present Illness (Text): you were treated in the ED today for history of chickenpox in the past and now having shingles rash along the mid-back going to the front along a nerve pathway otherwise without any fall/injury/trauam/nausea/vomiting/headache/ dizziness/difficulty breathing/chest pain/abdomen pain/numbness/tingling/loss of limb or bowel or bladder function/pain with urination. 04/02/17 22:30 Past Medical History - Provider Review Nursing Documentation Reviewed: Yes - Travel History Have you recently traveled outside [place] w/in the past 3 mons?: No - Past History Past History: No Previous - Infectious Disease Hx of Infectious Diseases: None - Tetanus Immunization Tetanus Immunization: Unknown - Cardiac Hx Cardiac Disorders: No Hx Pacemaker: No - Pulmonary Hx Respiratory Disorders: No Hx Tuberculosis: No - Neurological Hx Neurological Disorder: No HX Cerebrovascular Accident: No Hx Dizziness: Yes Hx Migraine: No Hx Seizures: No - HEENT Hx HEENT Disorder: No Other/Comment: wears rx glasses - Renal Hx Renal Disorder: No - Endocrine/Metabolic Hx Endocrine Disorders: No Hx Hyperthyroidism: No Hx Hypothyroidism: No - Hematological/Oncological Other/Comment: multiple blood transfusions - Integumentary Hx Dermatological Disorder: No Other/Comment: tatoos - Musculoskeletal/Rheumatological Hx Falls: No - Gastrointestinal Hx Gastrointestinal Disorders: Yes (gi bleed) Other/Comment: colitis - 13 years, tried remicade, aprizo, asacol, humira, mercaptopurine stopped working after 1 yr - Genitourinary/Gynecological Hx Genitourinary Disorders: No Hx Sexually Transmitted Diseases: No Other/Comment: denies fibroids - Psychiatric Hx Anxiety: Yes Hx Bipolar Disorder: Yes Hx Depression: Yes (13 years) Hx Emotional Abuse: No Hx Post Traumatic Stress Disorder: Yes (13 years ago) Hx Physical Abuse: No Hx Substance Use: No - Past Surgical History Past Surgical History: No Previous - Surgical History Hx Appendectomy: No Hx Orthopedic Surgery: Yes (bilateral feet, twisted, several years ago) Other/Comment: x2, twisted metatarsals and bunyon sx to feet - Anesthesia Hx Anesthesia: Yes Hx Anesthesia Reactions: No Hx Malignant Hyperthermia: No - Suicidal Assessment Feels Threatened In Home Enviroment: No Family/Social History Family/Social History: No Known Family HX Smoking Status: Never Smoked Hx Alcohol Use: No Hx Substance Use: No Substance used: PCP - 40 days ago from today 05/14/2016 Hx Substance Use Treatment: No Allergies/Home Meds Allergies/Adverse Reactions: Allergies No Known Allergies Allergy (Verified 07/28/16 14:17) Review of Systems - Review of Systems Constitutional: Normal Eyes: Normal ENT: Normal Respiratory: Normal Cardiovascular: Normal Gastrointestinal: Normal Genitourinary Female: Normal Musculoskeletal: Normal Skin: Rash Neurological: Normal Endocrine: Normal Hemo/Lymphatic: Normal Psychiatric: Normal Physical Exam Vital Signs Reviewed: Yes Vital Signs Temp Pulse Resp BP Pulse Ox 04/02/17 22:07 98.5 F 108 H 17 122/78 97 04/02/17 22:03 98.5 F 108 H 16 122/78 97 Temperature: Afebrile Blood Pressure: Hypertensive Pulse: Other (related to pain) Respiratory Rate: Normal Appearance: Positive for: Well-Appearing Pain Distress: Mild Mental Status: Positive for: Alert and Oriented X 3 - Systems Exam Head: Present: Atraumatic, Normocephalic Pupils: Present: PERRL Extroacular Muscles: Present: EOMI Conjunctiva: Present: Normal Ears: Present: Normal Mouth: Present: Moist Mucous Membranes Pharnyx: Present: Normal Nose (External): Present: Atraumatic Nose (Internal): Present: Normal Inspection Neck: Present: Normal Range of Motion Respiratory/Chest: Present: Clear to Auscultation, Good Air Exchange Cardiovascular: Present: Regular Rate and Rhythm Abdomen: No: Tenderness, Distention, Normal Bowel Sounds, Peritoneal Signs, Rebound, Guarding, McBurney's Point Tender, Rovsing's Sign Present, Hernias, Feeding Tubes, Ostomy Tubes, Mass/Organomegaly, Scars, Other Upper Extremity: Present: Normal Inspection, Other (right mid-t8 dermatome posterior mid to anterior front wo erythema/fluctuance/crepitus but rather with mild dry punctate vesicles w hyperemia. no spinal tenderness.) Lower Extremity: Present: Normal Inspection Neurological: Present: GCS=15, CN II-XII Intact Skin: Present: Warm, Rashes Psychiatric: Present: Alert, Oriented x 3, Normal Insight, Normal Concentration Medical Decision Making ED Course and Treatment: you were treated in the ED today for history of chickenpox in the past and now having shingles rash along the mid-back going to the front along a nerve pathway otherwise without any new foods/trave/new detergents/fall/injury/trauam/ nausea/vomiting/headache/dizziness/difficulty breathing/chest pain/abdomen pain/ numbness/tingling/loss of limb or bowel or bladder function/pain with urination. You were otherwise breathing easily, good strength/sensation, walking easily, clear lungs, no abdomen tenderness, mid-back to front area shingles type rash, no fever temp 98.5, mild fast heart rate 108 related to pain which improved, stable breathing rate 16, excellent oxygen level 97% room air, mildly elevated blood pressure 122/78 which we recommend repeat in 2-3 days primary care office to determine further treatment, you have shingles, acyclovir, toradol, percocet done in the ED with improvement, counselled to do soothing baths and thus discharged home with a ride as your not driving. 1. Recommend acyclovir as directed for shingles type rash treatment. 2. Recommend tylenol for mild pain, motrin as directed for moderate pain. 3. Recommend followup primary care 2-3 days to review symptoms. 4. If any worsening pain, fever, chills, nausea, vomiting, difficulty breathing, numbness, loss of limb function, pain with urination or any medical condition then return to the ED. 04/02/17 22:36 Reassessment Condition: Re-examined, Improving,but remains with symptoms - Medication Orders Current Medication Orders: Discontinued Medications Acyclovir (Zovirax) 800 mg PO ONCE ONE PRN Reason: Protocol Stop: 04/02/17 22:29 Last Admin: 04/02/17 22:43 Dose: 800 mg Ketorolac Tromethamine (Toradol) 30 mg IM STAT STA Stop: 04/02/17 22:30 Last Admin: 04/02/17 22:43 Dose: 30 mg Oxycodone/Acetaminophen (Percocet 5/325 Mg Tab) 1 tab PO STAT STA Stop: 04/02/17 22:30 Last Admin: 04/02/17 22:43 Dose: 1 tab Disposition/Present on Arrival - Present on Arrival Any Indicators Present on Arrival: No History of DVT/PE: No History of Uncontrolled Diabetes: No Urinary Catheter: No History of Decub. Ulcer: No History Surgical Site Infection Following: None - Disposition Have Diagnosis and Disposition been Completed?: Yes Diagnosis: Shingles Disposition: HOME/ ROUTINE Disposition Time: 22:38 Isolation: Contact Patient Problems: Current Active Problems Problem Status Onset Shingles Acute Condition: IMPROVED Discharge Instructions (ExitCare): Shingles (ED) Additional Instructions: you were treated in the ED today for history of chickenpox in the past and now having shingles rash along the mid-back going to the front along a nerve pathway otherwise without any new foods/trave/new detergents/fall/injury/trauam/ nausea/vomiting/headache/dizziness/difficulty breathing/chest pain/abdomen pain/ numbness/tingling/loss of limb or bowel or bladder function/pain with urination. You were otherwise breathing easily, good strength/sensation, walking easily, clear lungs, no abdomen tenderness, mid-back to front area shingles type rash, no fever temp 98.5, mild fast heart rate 108 related to pain which improved, stable breathing rate 16, excellent oxygen level 97% room air, mildly elevated blood pressure 122/78 which we recommend repeat in 2-3 days primary care office to determine further treatment, you have shingles, acyclovir, toradol, percocet done in the ED with improvement, counselled to do soothing baths and thus discharged home with a ride as your not driving. 1. Recommend acyclovir as directed for shingles type rash treatment. 2. Recommend tylenol for mild pain, motrin as directed for moderate pain. 3. Recommend followup primary care 2-3 days to review symptoms. 4. If any worsening pain, fever, chills, nausea, vomiting, difficulty breathing, numbness, loss of limb function, pain with urination or any medical condition then return to the ED. Prescriptions: Acyclovir [Zovirax] 800 mg PO 5XD 7 Days #35 tablet Ibuprofen [Motrin Tab] 800 mg PO Q8 PRN #30 tab PRN Reason: Pain, Moderate (4-7) Forms: [employer] ([place]ian)
[2017-04-02 23:10] VITALS: BP 128/70; PULSE 86; RESP 18; O2SAT 98
== END 2017-04-02 23:10 | disposition home or self-care (01) ==
LOC: ED 21:51
DX: B02.9 Zoster without complications (principal)
CPT/HCPCS: 96372; 99284; J1885

== ENCOUNTER 2017-04-10 19:35 | Inpatient (IN) | payer MEDICARE, MEDICAID ==
--- NOTE | 2017-04-10 20:03 | ED PDOC ---
Arrival/HPI <Kisha,Robert - Last Filed: 04/10/17 23:17> - General Historian: Patient <Izzy Way - Last Filed: 04/11/17 15:25> - General Chief Complaint: Substance Abuse Time Seen by Provider: 04/10/17 19:39 - History of Present Illness Narrative History of Present Illness (Text): 04/10/17 20:01 41-year-old female with a psychiatric history and a history of drug abuse presents today brought in by family for concerns of paranoia. Patient states that everybody in [place] is out to get her. Patient states the last time she used PCP was 5 days ago. She denies dizziness or weakness. Denies abdominal pain. No nausea or vomiting. Patient states the rash on her left side of the stomach has improved. Patient denies suicidal or homicidal ideation. Denies trauma or injury. No other complaints (Izzy Way) Past Medical History - Provider Review Nursing Documentation Reviewed: Yes - Travel History Have you recently traveled outside [place] w/in the past 3 mons?: No - Past History Past History: No Previous - Infectious Disease Hx of Infectious Diseases: None - Tetanus Immunization Tetanus Immunization: Unknown - Cardiac Hx Cardiac Disorders: No - Pulmonary Hx Respiratory Disorders: No Hx Tuberculosis: No - Neurological Hx Neurological Disorder: No - HEENT Hx HEENT Disorder: No Other/Comment: wears rx glasses - Renal Hx Renal Disorder: No - Endocrine/Metabolic Hx Endocrine Disorders: No - Hematological/Oncological Other/Comment: multiple blood transfusions - Integumentary Hx Dermatological Disorder: No Other/Comment: tatoos - Musculoskeletal/Rheumatological Hx Falls: No - Gastrointestinal Hx Gastrointestinal Disorders: Yes (gi bleed) Other/Comment: colitis - 13 years, tried remicade, aprizo, asacol, humira, mercaptopurine stopped working after 1 yr - Genitourinary/Gynecological Hx Genitourinary Disorders: No Hx Sexually Transmitted Diseases: No Other/Comment: denies fibroids - Psychiatric Hx Anxiety: Yes Hx Bipolar Disorder: Yes Hx Depression: Yes (13 years) Hx Emotional Abuse: No Hx Post Traumatic Stress Disorder: Yes (13 years ago) Hx Physical Abuse: No Hx Substance Use: Yes (PCP, 4 days ago) - Past Surgical History Past Surgical History: No Previous - Surgical History Hx Appendectomy: No Hx Orthopedic Surgery: Yes (bilateral feet, twisted, several years ago) Other/Comment: x2, twisted metatarsals and bunion sx to feet - Anesthesia Hx Anesthesia: Yes Hx Anesthesia Reactions: No Hx Malignant Hyperthermia: No - Suicidal Assessment Feels Threatened In Home Enviroment: No <Izzy Way - Last Filed: 04/11/17 15:25> Family/Social History - Physician Review Nursing Documentation Reviewed: Yes Family/Social History: Unknown Family HX Smoking Status: Never Smoked Hx Alcohol Use: No Hx Substance Use: Yes (PCP, 4 days ago) Substance used: PCP - 40 days ago from today 05/14/2016 Hx Substance Use Treatment: No <Izzy Way - Last Filed: 04/11/17 15:25> Allergies/Home Meds <Dre Beard - Last Filed: 04/10/17 23:17> <Izzy Way - Last Filed: 04/11/17 15:25> Allergies/Adverse Reactions: Allergies No Known Allergies Allergy (Verified 04/10/17 19:55) Home Medications: Home Meds Medication Instructions Recorded Confirmed No Known Home Med 04/10/17 04/10/17 Review of Systems - Review of Systems Constitutional: absent: Fatigue, Fevers Respiratory: absent: SOB, Cough Cardiovascular: absent: Chest Pain, Palpitations Gastrointestinal: absent: Abdominal Pain, Nausea, Vomiting Genitourinary Female: absent: Dysuria Musculoskeletal: absent: Arthralgias Skin: Rash Neurological: absent: Headache, Dizziness Psychiatric: absent: Anxiety, Depression, Suicidal Ideation <Izzy Way - Last Filed: 04/11/17 15:25> Physical Exam Vital Signs Reviewed: Yes Temperature: Afebrile Blood Pressure: Normal Pulse: Regular Respiratory Rate: Normal Appearance: Positive for: Well-Appearing, Non-Toxic, Comfortable Pain Distress: None Mental Status: Positive for: Alert and Oriented X 3, other (paranoid) - Systems Exam Head: Present: Atraumatic Mouth: Present: Moist Mucous Membranes Neck: Present: Normal Range of Motion Respiratory/Chest: Present: Clear to Auscultation, Good Air Exchange. No: Respiratory Distress, Accessory Muscle Use Cardiovascular: Present: Regular Rate and Rhythm, Normal S1, S2. No: Murmurs Abdomen: No: Tenderness, Distention, Rebound, Guarding Back: No: Midline Tenderness, Paraspinal Tenderness Upper Extremity: Present: Normal ROM Lower Extremity: Present: Normal ROM Neurological: Present: GCS=15, Speech Normal Skin: Present: Warm, Dry, Rashes (healing erythematous plaques noted to left upper abdomen. ), Normal Color Psychiatric: Present: Alert, Oriented x 3, Other (paranoid). No: Suicidal Ideation, Homicidal Ideation <Izzy Way - Last Filed: 04/11/17 15:25> Vital Signs Temp Pulse Pulse Resp BP Pulse Ox 04/11/17 05:21 98.6 F 105 H 17 120/78 98 04/11/17 05:08 98.2 F 101 H 101 H 18 107/61 04/11/17 04:06 100 H 17 118/51 L 100 04/10/17 20:54 97.5 F L 92 H 18 129/71 Medical Decision Making <Dre Beard - Last Filed: 04/10/17 23:17> <Izzy Way - Last Filed: 04/11/17 15:25> ED Course and Treatment: 04/10/17 20:03 Patient is altered. paranoid. stable vitals. CBC wbc; 13 CMP bicarb; 12 aniongap; 21 lactate; wnl CPK: 4353 Tylenol WNL Salicylate WNL Alcohol level WNL Urine drug screen PCP+ UA; wnl cxr: wnl ekg: NSR with sinus arrhythmia at 76b/m no st elevations, normal axis, qtc 450 Patient was seen and evaluated by PES screener: candace ct head; FINDINGS:FINDINGS: Brain: No evidence of acute intracranial bleed. No mass lesion or mass effect. Salas/white matter differentiation is unremarkable. Cerebellum is unremarkable. Cisterns are unremarkable. Brainstem is unremarkable. No suprasellar mass. Ventricles: Unremarkable. No ventriculomegaly. Bones/joints: Unremarkable. No acute fracture. Soft tissues: Unremarkable. Sinuses: Unremarkable as visualized. No acute sinusitis. Mastoid air cells: Unremarkable as visualized. No mastoid effusion. IMPRESSION: No acute findings. ct abd/pelvis; FINDINGS: Lower thorax: Small hiatal hernia. ABDOMEN: Liver: Unremarkable. No mass. Gallbladder and bile ducts: Unremarkable. No calcified stones. No ductal dilation. Pancreas: Unremarkable. No mass. No ductal dilation. Spleen: Unremarkable. No splenomegaly. Adrenals: Unremarkable. No mass. Kidneys and ureters: Cyst in left kidney. Kidneys are otherwise unremarkable.No hydronephrosis or hydroureter or evidence of obstructive nephrolithiasis. Stomach and bowel: Large amount of stool in colon. There appears to be mild diffuse wall thickening in transverse and descending colon. No evidence of obstruction. Appendix: Proximal and mid appendix is normal caliber. Appendiceal tip seen on axial image 87 appears mildly distended measuring 9 mm. No appendicolith. No adjacent inflammatory changes. PELVIS: Bladder: Unremarkable. No mass. Reproductive: Unremarkable as visualized. ABDOMEN and PELVIS: Intraperitoneal space: Unremarkable. No free air. No significant fluid collection. Bones/joints: No acute fracture. No dislocation. Soft tissues: Unremarkable. Vasculature: Unremarkable. No abdominal aortic aneurysm. Lymph nodes: Unremarkable. No enlarged lymph nodes. IMPRESSION: 1. Small hiatal hernia. 2. Large amount of stool in the colon. There appears to be mild diffuse wall thickening in transverse and descending colon. No evidence of obstruction. Please correlate clinically for colitis. 3. Proximal and mid appendix is normal caliber. Appendiceal tip seen on axial image 87 appears mildly distended measuring 9 mm. No appendicolith. No adjacent inflammatory changes. Study is suboptimal for exclusion of mild early acute appendicitis in appendiceal tip. Please correlate with physical exam pt given 2mg of ativan given for agitated; paranoia resolved. alert, but pt remains with AMS. 2L lactated ringers given. pt placed on 1:1 for safety. pt started on rocephin and flagyl for colitis case discussed with dr. swann; accepts admission; would like ICU consult. case discussed with dr. Bonifacio oseguera; football pad repairer; pt seen and evaluated. does not meet ICU criteria; pt to be admitted to [facility]. impression; ams, rhabdomyolysis, substance abuse, metabolic acidosis Admit to Dr. swann (Izzy Way) - Lab Interpretations Lab Results: 04/10/17 22:00 04/10/17 22:00 Lab Results 04/10/17 22:10: pCO2 23 L, pO2 116.0 H, HCO3 11.3 L, ABG pH 7.30 L, ABG Total CO2 12.0 L, ABG O2 Saturation 97.2, ABG Base Excess -13.1 L, ABG Potassium 3.7, Glucose 89, Lactate 1.0, FiO2 21.0, Sodium 137.0, Chloride 110.0 H, Arterial Blood Potassium 3.7 04/10/17 22:00: WBC 14.3 H, RBC 4.32, Hgb 9.1 L, Hct 29.8 L, MCV 69.0 L, MCH 21.1 L, MCHC 30.5 L, RDW 19.2 H, Plt Count 442, MPV 10.4, Gran % 76.1 H, Lymph % (Auto) 13.8 L, Edgar % (Auto) 9.9 H, Eos % (Auto) 0.1 L, Baso % (Auto) 0.1, Gran # 10.91 H, Lymph # 2.0, Edgar # 1.4 H, Eos # 0.0, Baso # 0.02 04/10/17 22:00: Sodium 138, Potassium 4.2, Chloride 107, Carbon Dioxide 12 L, Anion Gap 23 H, BUN 11, Creatinine 0.8, Est GFR ( Amer) > 60, Est GFR ( Non-Af Amer) > 60, Random Glucose 84, Calcium 9.6, Total Bilirubin 0.7, AST 77 H , ALT 36, Alkaline Phosphatase 101, Total Protein 7.9, Albumin 4.4, Globulin 3.5 , Albumin/Globulin Ratio 1.3 04/10/17 20:45: Urine Opiates Screen Negative, Urine Methadone Screen Negative, Ur Barbiturates Screen Negative, Ur Phencyclidine Scrn Positive H, Ur Amphetamines Screen Negative, U Benzodiazepines Scrn Negative, U Oth Cocaine Metabols Negative, U Cannabinoids Screen Negative 04/10/17 20:45: Urine Color Yellow, Urine Appearance Clear, Urine pH 5.5, Ur Specific [place] >= 1.030, Urine Protein Negative, Urine Glucose (UA) Negative, Urine Ketones >=80, Urine Blood Negative, Urine Nitrate Negative, Urine Bilirubin Small H, Urine Urobilinogen 0.2, Ur Leukocyte Esterase Negative 04/10/17 20:30: Alcohol, Quantitative < 10 04/10/17 20:30: Salicylates < 1 L, Acetaminophen < 10.0 L 04/10/17 20:30: Sodium 136, Potassium 4.1, Chloride 107, Carbon Dioxide 12 L, Anion Gap 21 H, BUN 11, Creatinine 0.8, Est GFR ( Amer) > 60, Est GFR ( Non-Af Amer) > 60, Random Glucose 65 L, Calcium 9.3, Total Bilirubin 0.6, AST 81 H, ALT 31, Alkaline Phosphatase 86, Total Creatine Kinase 4353 H, CK-MB (CK-2 ) 12.9 H, CK-MB (CK-2) % 0.3 L, Total Protein 7.4, Albumin 4.2, Globulin 3.2, Albumin/Globulin Ratio 1.3 04/10/17 20:30: WBC 13.0 H D, RBC 4.04, Hgb 8.3 L, Hct 28.2 L, MCV 69.8 L, MCH 20.5 L, MCHC 29.4 L, RDW 19.1 H, Plt Count 388, MPV 10.7, Gran % 80.3 H, Lymph % (Auto) 8.4 L, Edgar % (Auto) 11.1 H, Eos % (Auto) 0.0 L, Baso % (Auto) 0.2, Gran # 10.46 H, Lymph # 1.1 L, Edgar # 1.5 H, Eos # 0.0, Baso # 0.02 - RAD Interpretation Radiology Orders: 04/10/17 19:59 CHEST PORTABLE [RAD] Stat 04/10/17 22:38 HEAD W/O CONTRAST [CT] Stat 04/10/17 23:56 ABD & PELVIS IV CONTRAST ONLY [CT] Stat - Medication Orders Current Medication Orders: Clonazepam (Klonopin) 1 mg PO BID PRN; Protocol PRN Reason: Anxiety Last Admin: 04/11/17 14:13 Dose: 1 mg Behavioural Document 04/11/17 14:13 [facility] (Rec: 04/11/17 14:13 [facility] [id number]) Maintenance Maintenance Dose No Nonmedicinal Nonmedicinal Interventions Therapeutic Communication Behavior Behavior for Medication: Anxiety Famciclovir (Famvir) 500 mg PO Q8 KAREN Last Admin: 04/11/17 14:14 Dose: 500 mg Lactated Ringer's (Lactated Ringer's) 1,000 mls @ 250 mls/hr IV .Q4H KAREN Last Admin: 04/11/17 14:19 Dose: 250 mls/hr eMAR Start Stop Document 04/11/17 14:19 [facility] (Rec: 04/11/17 14:19 [facility] [id number]) Intravenous Solution Start Date 04/11/17 Start Time 14:19 End Date 04/11/17 Ceftriaxone Sodium (Rocephin 1 Gram Ivpb (D5w)) 1 gm in 100 mls @ 100 mls/hr IVPB DAILY KAREN PRN Reason: Protocol Ketorolac Tromethamine (Toradol) 15 mg IVP Q6 PRN PRN Reason: Pain, moderate (4-7) Pantoprazole Sodium (Protonix Inj) 40 mg IVP DAILY KAREN Discontinued Medications Lactated Ringer's 1,000 ml/ IV (SUPPLIES) 1,000 mls @ 999 mls/hr IV ONCE ONE Stop: 04/10/17 23:37 Last Admin: 04/11/17 00:07 Dose: 999 mls/hr eMAR Start Stop Document 04/11/17 00:07 RE (Rec: 04/11/17 00:07 RE [id number]) Intravenous Solution Start Date 04/10/17 Start Time 21:45 End Date 04/11/17 End time 00:07 Total Infusion Time 142 Lactated Ringer's 1,000 ml/ IV (SUPPLIES) 1,000 mls @ 999 mls/hr IV ONCE ONE Stop: 04/11/17 02:36 Last Admin: 04/11/17 03:31 Dose: 999 mls/hr eMAR Start Stop Document 04/11/17 03:31 IT (Rec: 04/11/17 03:31 IT [id number]) Intravenous Solution Start Date 04/11/17 Start Time 02:12 Metronidazole (Flagyl) 500 mg in 100 mls @ 100 mls/hr IVPB STAT STA PRN Reason: Protocol Stop: 04/11/17 03:32 Last Admin: 04/11/17 04:06 Dose: 100 mls/hr eMAR Start Stop Document 04/11/17 04:06 IT (Rec: 04/11/17 04:06 IT [id number]) Intravenous Solution Start Date 04/11/17 Start Time 04:06 End Date 04/11/17 End time 05:06 Total Infusion Time 60 Ceftriaxone Sodium (Rocephin 1 Gram Ivpb (D5w)) 1 gm in 100 mls @ 200 mls/hr IVPB STAT KAREN PRN Reason: Protocol Stop: 04/11/17 03:14 Last Admin: 04/11/17 03:02 Dose: 200 mls/hr eMAR Start Stop Document 04/11/17 03:02 IT (Rec: 04/11/17 03:02 IT [id number]) Intravenous Solution Start Date 04/11/17 Start Time 03:02 Lorazepam (Ativan) 1 mg IVP ONCE ONE PRN Reason: Protocol Stop: 04/10/17 23:45 Last Admin: 04/11/17 00:50 Dose: 2 mg Comments: order changed to ativan 2 mg and given IVP Administration Document 04/11/17 00:50 RE (Rec: 04/11/17 00:51 RE [id number]) Charges for Administration # of IVP Administrations 1 Lorazepam (Ativan) 1 mg IVP ONCE ONE PRN Reason: Protocol Stop: 04/11/17 00:09 Last Admin: 04/11/17 00:53 Dose: 1 mg Comments: 2mg given as ordered IVP Administration Document 04/11/17 00:53 RE (Rec: 04/11/17 00:54 RE [id number]) Charges for Administration # of IVP Administrations 1 - PA / NATURAL RESOURCE SPECIALIST / Resident Statement / has reviewed & agrees with the documentation as recorded. / has examined the patient and agrees with the treatment plan. <Dre Beard - Last Filed: 04/10/17 23:17> Disposition/Present on Arrival <Dre Beard - Last Filed: 04/10/17 23:17> - Present on Arrival Any Indicators Present on Arrival: No History of DVT/PE: No History of Uncontrolled Diabetes: No Urinary Catheter: No History of Decub. Ulcer: No History Surgical Site Infection Following: None - Disposition Have Diagnosis and Disposition been Completed?: Yes Disposition Time: 03:00 Patient Plan: Admission <Izzy Way - Last Filed: 04/11/17 15:25> - Disposition Diagnosis: Altered mental status, Metabolic acidosis, Leukocytosis, Colitis Disposition: HOSPITALIZED Patient Problems: Current Active Problems Problem Status Onset Altered mental status Acute Leukocytosis Acute Metabolic acidosis Acute Condition: FAIR
[2017-04-10 20:51] LABS: BASO # 0.02 K/mm3 (0.0-2.0); BASO % 0.2 % (0.0-3.0); GRAN # 10.46 (1.4-6.5); GRAN % 80.3 % (50.0-68.0); HEMATOCRIT 28.2 % (36.0-48.0); LYMPH # 1.1 (1.2-3.4); LYMPH % 8.4 % (22.0-35.0); MEAN CELL VOLUME 69.8 fl (80.0-105.0); MEAN CORPUSCULAR HEMOGLOBIN 20.5 pg (25.0-35.0); MEAN CORPUSCULAR HGB CONC 29.4 g/dl (31.0-37.0); MEAN PLATELET VOLUME 10.7 fl (7.0-11.0); MONO # 1.5 (0.1-0.6); MONO % 11.1 % (1.0-6.0); RED CELL DISTRIBUTION WIDTH 19.1 % (11.5-14.5)
[2017-04-10 20:51] LABS: PH,URINE 5.5 (4.7-8.0); URINE BILIRUBIN SMALL (NEGATIVE); URINE BLOOD NEGATIVE (NEGATIVE); URINE COLOR YELLOW (YELLOW); URINE GLUCOSE (UA) NEGATIVE (NEGATIVE); URINE KETONE >=80 mg/dL (NEGATIVE); URINE LEUKOCYTE ESTERASE NEGATIVE Leu/uL (NEGATIVE); URINE PROTEIN NEGATIVE mg/dL (<30 mg/dL); URINE UROBILINOGEN 0.2 E.U./dL (<1 E.U./dL)
[2017-04-10 20:52] LABS: URINE APPEARANCE CLEAR (CLEAR)
[2017-04-10 21:51] LABS: ALB/GLOB RATIO 1.3 (1.1-1.8); ALT/SGPT 31 U/L (7-56); AST/SGOT 81 U/L (14-36); BILIRUBIN,TOTAL 0.6 mg/dL (0.2-1.3); BLOOD UREA NITROGEN 11 mg/dL (7-21); CALCIUM 9.3 mg/dL (8.4-10.5); CARBON DIOXIDE 12 mmol/L (21-33); CHLORIDE 107 mmol/L (98-107); GFR AFRICAN-AMERICAN > 60; GLUCOSE,RANDOM 65 mg/dL (70-110); POTASSIUM 4.1 mmol/L (3.6-5.0); SODIUM 136 mmol/L (132-148); TOTAL PROTEIN 7.4 g/dL (5.8-8.3)
[2017-04-10 21:52] LABS: ALKALINE PHOSPHATASE 86 U/L (38-126)
[2017-04-10] MEDS ORDERED: Sodium Chloride 0.9% 1,000 ML IV STA (22:01)
[2017-04-10 22:20] LABS: ARTERIAL BLOOD GAS HCO3 11.3 mmol/L (21-28)
[2017-04-10 22:41] LABS: BASO # 0.02 K/mm3 (0.0-2.0); BASO % 0.1 % (0.0-3.0); EOS % 0.1 % (1.5-5.0); GRAN # 10.91 (1.4-6.5); GRAN % 76.1 % (50.0-68.0); HEMATOCRIT 29.8 % (36.0-48.0); LYMPH % 13.8 % (22.0-35.0); MEAN CORPUSCULAR HEMOGLOBIN 21.1 pg (25.0-35.0); MEAN CORPUSCULAR HGB CONC 30.5 g/dl (31.0-37.0); MEAN PLATELET VOLUME 10.4 fl (7.0-11.0); MONO # 1.4 (0.1-0.6); MONO % 9.9 % (1.0-6.0); RED CELL DISTRIBUTION WIDTH 19.2 % (11.5-14.5); WHITE BLOOD COUNT 14.3 10^3/ul (4.5-11.0)
[2017-04-10 22:56] LABS: BLOOD UREA NITROGEN 11 mg/dL (7-21); CHLORIDE 107 mmol/L (98-107); GFR AFRICAN-AMERICAN > 60; GLUCOSE,RANDOM 84 mg/dL (70-110); POTASSIUM 4.2 mmol/L (3.6-5.0); SODIUM 138 mmol/L (132-148)
[2017-04-10 22:57] LABS: ALB/GLOB RATIO 1.3 (1.1-1.8); ALKALINE PHOSPHATASE 101 U/L (38-126); ALT/SGPT 36 U/L (7-56); AST/SGOT 77 U/L (14-36); BILIRUBIN,TOTAL 0.7 mg/dL (0.2-1.3); CALCIUM 9.6 mg/dL (8.4-10.5); CARBON DIOXIDE 12 mmol/L (21-33); TOTAL PROTEIN 7.9 g/dL (5.8-8.3)
[2017-04-11] MEDS ORDERED: Iohexol 350 MG/100 ML VIAL ONE (00:32)
--- NOTE | 2017-04-11 02:27 | CP.PCM.CON ---
History of Present Illness - History of Present Illness History of Present Illness: ICU Consult note HPI: Patient is a 41yo female with past medical history of ulcerative colitis, polysubstance abuse (PCP, franny) and chronic anemia that presents to [facility] accompanied by her sister after having been found wandering the streets outside for the last 2 days. Per patient's family, she has been using PCP and found out on the street hallucinating. Family reports that she has been paranoid saying people are out to get her and reportedly took PCP 5 days prior to arrival. Patient reports that she has not been eating. She reports right upper and lower quadrant abdominal pain that she admits is a chronic issue due to her ulcerative colitis. Denies chest pain, palpitations, SOB, nausea, vomiting, fever, chills, cough, focal weakness, numbness, tingling. 12point ROS as per HPI above, otherwise negative PMH: as stated above PSH: denies Allergies: NKDA Social Hx: PCP and opiate abuse; denies tobacco and alcohol use Family history: History of IBD on maternal and paternal side Past Patient History - Infectious Disease Hx of Infectious Diseases: None - Tetanus Immunizations Tetanus Immunization: Unknown - Past Medical History & Family History Past Medical History?: Yes - Past Social History Smoking Status: Never Smoked - CARDIAC Hx Cardiac Disorders: No - PULMONARY Hx Respiratory Disorders: No Hx Tuberculosis: No - NEUROLOGICAL Hx Neurological Disorder: No - HEENT Hx HEENT Problems: No Other/Comment: wears rx glasses - RENAL Hx Chronic Kidney Disease: No - ENDOCRINE/METABOLIC Hx Endocrine Disorders: No - HEMATOLOGICAL/ONCOLOGICAL Other/Comment: multiple blood transfusions - INTEGUMENTARY Hx Dermatological Problems: No Other/Comment: tatoos - MUSCULOSKELETAL/RHEUMATOLOGICAL Hx Falls: No - GASTROINTESTINAL Hx Gastrointestinal Disorders: Yes (gi bleed) Other/Comment: colitis - 13 years, tried remicade, aprizo, asacol, humira, mercaptopurine stopped working after 1 yr - GENITOURINARY/GYNECOLOGICAL Hx Genitourinary Disorders: No Hx Sexually Transmitted Disorders: No Other/Comment: denies fibroids - PSYCHIATRIC Hx Anxiety: Yes Hx Bipolar Disorder: Yes Hx Depression: Yes (13 years) Hx Emotional Abuse: No Hx Post Traumatic Stress Disorder: Yes (13 years ago) Hx Physical Abuse: No Hx Substance Use: Yes (PCP, 4 days ago) - SURGICAL HISTORY Hx Appendectomy: No Hx Orthopedic Surgery: Yes (bilateral feet, twisted, several years ago) Other/Comment: x2, twisted metatarsals and bunion sx to feet - ANESTHESIA Hx Anesthesia: Yes Hx Anesthesia Reactions: No Hx Malignant Hyperthermia: No Meds Allergies/Adverse Reactions: Allergies Allergy/AdvReac Type Severity Reaction Status Date / Time No Known Allergies Allergy Verified 04/10/17 19:55 - Medications Medications: Current Medications Lactated Ringer's 1,000 ml/ IV (SUPPLIES) 1,000 mls @ 999 mls/hr IV ONCE ONE Stop: 04/11/17 02:36 Lactated Ringer's (Lactated Ringer's) 1,000 mls @ 250 mls/hr IV .Q4H KAREN Physical Exam - Constitutional Additional comments: Disheveled - Head Exam Head Exam: ATRAUMATIC, NORMAL INSPECTION, NORMOCEPHALIC - Eye Exam Eye Exam: EOMI, PERRL - ENT Exam ENT Exam: Mucous Membranes Moist - Neck Exam Neck exam: Positive for: Normal Inspection. Negative for: Lymphadenopathy, Tenderness, Thyromegaly - Respiratory Exam Respiratory Exam: Clear to Auscultation Bilateral. absent: Rales, Rhonchi, Wheezes - Cardiovascular Exam Cardiovascular Exam: RRR, +S1, +S2. absent: Gallop, JVD, Rubs, Systolic Murmur - GI/Abdominal Exam GI & Abdominal Exam: Normal Bowel Sounds, Soft. absent: Distended, Firm, Guarding, Rebound, Tenderness - Neurological Exam Neurological exam: Alert, CN II-XII Intact - Psychiatric Exam Psychiatric exam: Normal Affect, Normal Mood - Skin Skin Exam: Dry, Intact, Normal Color, Warm Results - Vital Signs Recent Vital Signs: Last Vital Signs Temp 97.5 F L 04/10/17 20:54 Pulse 92 H 04/10/17 20:54 Resp 18 04/10/17 20:54 BP 129/71 04/10/17 20:54 Pulse Ox - Labs Result Diagrams: 04/10/17 22:00 04/10/17 22:00 Labs: Laboratory Results - last 24 hr 04/10/17 04/10/17 04/10/17 20:30 20:30 20:30 WBC 13.0 H D RBC 4.04 Hgb 8.3 L Hct 28.2 L MCV 69.8 L MCH 20.5 L MCHC 29.4 L RDW 19.1 H Plt Count 388 MPV 10.7 Gran % 80.3 H Lymph % (Auto) 8.4 L [place] % (Auto) 11.1 H Eos % (Auto) 0.0 L Baso % (Auto) 0.2 Gran # 10.46 H Lymph # 1.1 L Deuel # 1.5 H Eos # 0.0 Baso # 0.02 pCO2 pO2 HCO3 ABG pH ABG Total CO2 ABG O2 Saturation ABG Base Excess ABG Potassium Glucose Lactate FiO2 Sodium 136 Potassium 4.1 Chloride 107 Carbon Dioxide 12 L Anion Gap 21 H BUN 11 Creatinine 0.8 Est GFR ( Amer) > 60 Est GFR (Non-Af Amer) > 60 Random Glucose 65 L Calcium 9.3 Total Bilirubin 0.6 AST 81 H ALT 31 Alkaline Phosphatase 86 Total Creatine Kinase 4353 H CK-MB (CK-2) 12.9 H CK-MB (CK-2) % 0.3 L Total Protein 7.4 Albumin 4.2 Globulin 3.2 Albumin/Globulin Ratio 1.3 Arterial Blood Potassium Urine Color Urine Appearance Urine pH Ur Specific [place] Urine Protein Urine Glucose (UA) Urine Ketones Urine Blood Urine Nitrate Urine Bilirubin Urine Urobilinogen Ur Leukocyte Esterase Salicylates < 1 L Urine Opiates Screen Urine Methadone Screen Acetaminophen < 10.0 L Ur Barbiturates Screen Ur Phencyclidine Scrn Ur Amphetamines Screen U Benzodiazepines Scrn U Oth Cocaine Metabols U Cannabinoids Screen Alcohol, Quantitative 04/10/17 04/10/17 04/10/17 20:30 20:45 20:45 WBC RBC Hgb Hct MCV MCH MCHC RDW Plt Count MPV Gran % Lymph % (Auto) [place] % (Auto) Eos % (Auto) Baso % (Auto) Gran # Lymph # Deuel # Eos # Baso # pCO2 pO2 HCO3 ABG pH ABG Total CO2 ABG O2 Saturation ABG Base Excess ABG Potassium Glucose Lactate FiO2 Sodium Potassium Chloride Carbon Dioxide Anion Gap BUN Creatinine Est GFR ( Amer) Est GFR (Non-Af Amer) Random Glucose Calcium Total Bilirubin AST ALT Alkaline Phosphatase Total Creatine Kinase CK-MB (CK-2) CK-MB (CK-2) % Total Protein Albumin Globulin Albumin/Globulin Ratio Arterial Blood Potassium Urine Color Yellow Urine Appearance Clear Urine pH 5.5 Ur Specific [place] >= 1.030 Urine Protein Negative Urine Glucose (UA) Negative Urine Ketones >=80 Urine Blood Negative Urine Nitrate Negative Urine Bilirubin Small H Urine Urobilinogen 0.2 Ur Leukocyte Esterase Negative Salicylates Urine Opiates Screen Negative Urine Methadone Screen Negative Acetaminophen Ur Barbiturates Screen Negative Ur Phencyclidine Scrn Positive H Ur Amphetamines Screen Negative U Benzodiazepines Scrn Negative U Oth Cocaine Metabols Negative U Cannabinoids Screen Negative Alcohol, Quantitative < 10 04/10/17 04/10/17 04/10/17 22:00 22:00 22:10 WBC 14.3 H RBC 4.32 Hgb 9.1 L Hct 29.8 L MCV 69.0 L MCH 21.1 L MCHC 30.5 L RDW 19.2 H Plt Count 442 MPV 10.4 Gran % 76.1 H Lymph % (Auto) 13.8 L [place] % (Auto) 9.9 H Eos % (Auto) 0.1 L Baso % (Auto) 0.1 Gran # 10.91 H Lymph # 2.0 Deuel # 1.4 H Eos # 0.0 Baso # 0.02 pCO2 23 L pO2 116.0 H HCO3 11.3 L ABG pH 7.30 L ABG Total CO2 12.0 L ABG O2 Saturation 97.2 ABG Base Excess -13.1 L ABG Potassium 3.7 Glucose 89 Lactate 1.0 FiO2 21.0 Sodium 138 137.0 Potassium 4.2 Chloride 107 110.0 H Carbon Dioxide 12 L Anion Gap 23 H BUN 11 Creatinine 0.8 Est GFR ( Amer) > 60 Est GFR (Non-Af Amer) > 60 Random Glucose 84 Calcium 9.6 Total Bilirubin 0.7 AST 77 H ALT 36 Alkaline Phosphatase 101 Total Creatine Kinase CK-MB (CK-2) CK-MB (CK-2) % Total Protein 7.9 Albumin 4.4 Globulin 3.5 Albumin/Globulin Ratio 1.3 Arterial Blood Potassium 3.7 Urine Color Urine Appearance Urine pH Ur Specific [place] Urine Protein Urine Glucose (UA) Urine Ketones Urine Blood Urine Nitrate Urine Bilirubin Urine Urobilinogen Ur Leukocyte Esterase Salicylates Urine Opiates Screen Urine Methadone Screen Acetaminophen Ur Barbiturates Screen Ur Phencyclidine Scrn Ur Amphetamines Screen U Benzodiazepines Scrn U Oth Cocaine Metabols U Cannabinoids Screen Alcohol, Quantitative Assessment & Plan - Assessment and Plan (Free Text) Plan: 41yo female with history of polysubstance abuse, ulcerative colitis, chronic anemia presents with metabolic acidosis with elevated anion gap with superimposed respiratory alkalosis likely secondary to PCP abuse/starvation ketoacidosis. Presently, she is hemodynamically stable, saturating 100% on room air and requires vigorous IVF hydration due to rhabdomyolysis (elevated CPK). Patient does not require ICU level care at this time. At this time we recommend: -Vigorous IVF hydration with lactated ringers -1:1 observation -Psychiatry consultation for polysubstance abuse/hallucinations -Panculture Patient seen and case discussed/reviewed with attending, Dr. Cummings
[2017-04-11] MEDS ORDERED: metroNIDAZOLE IV 500 mg/100 ml 500 MG/100 ML BAG IVPB STA (02:33)
[2017-04-11] MEDS ORDERED: cefTRIAXone 1 gm 1 GM/100 ML BAG IVPB SCH (02:45)
[2017-04-11] MEDS: Lactated Ringer's 1,000 ML IV SCH ×3 (03:31→21:36)
--- NOTE | 2017-04-11 08:56 | RAD ---
HISTORY: pes eval COMPARISON: No prior. FINDINGS: LUNGS: No active pulmonary disease. PLEURA: No significant pleural effusion identified, no pneumothorax apparent. CARDIOVASCULAR: Normal. OSSEOUS STRUCTURES: No significant abnormalities. VISUALIZED UPPER ABDOMEN: Normal. OTHER FINDINGS: None. IMPRESSION: No active disease.
--- NOTE | 2017-04-11 09:24 | CT ---
PROCEDURE: CT HEAD WITHOUT CONTRAST. HISTORY: AMS COMPARISON: CT 10/01/2013 TECHNIQUE: Axial computed tomography images were obtained through the head/brain without intravenous contrast. Radiation dose: Total exam DLP = mGy-cm. This CT exam was performed using one or more of the following dose reduction techniques: Automated exposure control, adjustment of the mA and/or kV according to patient size, and/or use of iterative reconstruction technique. FINDINGS: HEMORRHAGE: No intracranial hemorrhage. BRAIN: No mass effect or edema. No atrophy or chronic microvascular ischemic changes. VENTRICLES: Unremarkable. No hydrocephalus. CALVARIUM: Unremarkable. PARANASAL SINUSES: Unremarkable as visualized. No significant inflammatory changes. MASTOID AIR CELLS: Unremarkable as visualized. No inflammatory changes. OTHER FINDINGS: None. IMPRESSION: No acute findings
--- NOTE | 2017-04-11 09:34 | CT ---
PROCEDURE: CT Abdomen and Pelvis with contrast HISTORY: abd pain COMPARISON: None. TECHNIQUE: Contrast dose: 100 cc of Omni 350 Radiation dose: Total exam DLP = 479 mGy-cm. This CT exam was performed using one or more of the following dose reduction techniques: Automated exposure control, adjustment of the mA and/or kV according to patient size, and/or use of iterative reconstruction technique. FINDINGS: LOWER THORAX: Unremarkable. LIVER: Unremarkable. No gross lesion or ductal dilatation. GALLBLADDER AND BILE DUCTS: Unremarkable. PANCREAS: Unremarkable. No gross lesion or ductal dilatation. SPLEEN: Unremarkable. ADRENALS: Unremarkable. No mass. KIDNEYS AND URETERS: Unremarkable. No hydronephrosis. No solid mass. VASCULATURE: Unremarkable. No aortic aneurysm. BOWEL: There is a moderate to large amount of fecal retention throughout the colon. There is mild wall thickening in the transverse colon. This could represent mild colitis. Clinical correlation is suggested. APPENDIX: No evidence of appendicitis. There is a long retrocecal appendix PERITONEUM: Unremarkable. No free fluid. No free air. LYMPH NODES: Unremarkable. No enlarged lymph nodes. BLADDER: Unremarkable. REPRODUCTIVE: Unremarkable. BONES: No acute fracture. OTHER FINDINGS: The report concurs with the preliminary [facility] report IMPRESSION: Constipation. Mild wall thickening in the transverse colon, possible mild colitis.
[2017-04-11 09:46] LABS: HEMATOCRIT 26.1 % (36.0-48.0); MEAN CORPUSCULAR HEMOGLOBIN 20.6 pg (25.0-35.0); MEAN CORPUSCULAR HGB CONC 29.9 g/dl (31.0-37.0); MEAN PLATELET VOLUME 9.3 fl (7.0-11.0); RED CELL DISTRIBUTION WIDTH 19.2 % (11.5-14.5); WHITE BLOOD COUNT 7.9 10^3/ul (4.5-11.0)
[2017-04-11 09:54] LABS: BLOOD UREA NITROGEN 7 mg/dL (7-21); CALCIUM 8.8 mg/dL (8.4-10.5); CARBON DIOXIDE 18 mmol/L (21-33); CHLORIDE 110 mmol/L (98-107); GFR AFRICAN-AMERICAN > 60; GLUCOSE,RANDOM 63 mg/dL (70-110); POTASSIUM 3.6 mmol/L (3.6-5.0); SODIUM 139 mmol/L (132-148)
[2017-04-11 11:44] VITALS: BMI 31.2
--- NOTE | 2017-04-11 16:18 | CON ---
DATE: 04/11/2017 NEUROLOGY CONSULTATION CHIEF COMPLAINT: Change in mental status. HISTORY OF PRESENT ILLNESS: A 41-year-old woman history of ulcerative colitis, polysubstance abuse with PCP and Dilaudid, chronic anemia presented to the [facility] accompanied by her sister having been wandering in the street for past 3 days. As per family she was found on the street hallucinating and was paranoid. Currently, her CAT scan of the head show no acute intracranial abnormalities. Her urine tox is positive for PCP and opioids. Now she is back at her baseline following commands, has flat affect, may be slightly depressed. Moves all extremities. Answering question appropriately. No hallucinations at this time. PAST MEDICAL HISTORY: Ulcerative colitis, polysubstance abuse, PCP and Dilaudid, chronic anemia. ALLERGIES: NO KNOWN DRUG ALLERGIES. SOCIAL HISTORY: PCP, opioid abuse. Denies any tobacco or alcohol use. FAMILY HISTORY: Noncontributory. REVIEW OF SYSTEMS: A 14-point review of systems is negative except as per the HPI. PHYSICAL EXAMINATION: VITAL SIGNS: Pulse rate of 102, temperature 98.2, blood pressure 92/53, respiratory rate 18, and oxygen saturation 98% via room air. GENERAL: The patient is sitting up in bed, in no acute distress. HEENT: Head is atraumatic and normocephalic. PERRLA. Extraocular muscles are intact. NECK: Supple. No JVD. No adenopathy noted. LUNGS: Clear to auscultation. No adventitious sounds. HEART: S1 and S2. Normal rate and rhythm. No murmurs, rubs, or gallops. ABDOMEN: Soft, nontender and nondistended. Bowel sounds are present. EXTREMITIES: No clubbing. No cyanosis. Peripheral pulses are 2+ felt bilaterally. NEUROLOGIC: The patient is alert and oriented to person, place, month, and year with flat affect. Cranial nerves II through XII are intact. Motor exam: Moves all extremities equally. Toes are downgoing bilaterally. Sensory exam: Light touch, pinprick, proprioception, vibration intact. DTRs are 2+ throughout. Coordination of qopcnl-ke-qacr intact. Gait is deferred for now. LABORATORY DATA: U-tox positive for PCP. Sodium is 139, potassium 3.6, chloride 110, carbon dioxide of 18, BUN of 7, creatinine 0.9 and random glucose of . ASSESSMENT AND PLAN: A 41-year-old woman, history of ulcerative colitis, chronic anemia, history of polysubstance with Dilaudid and PCP in the past was brought because she was found wandering on the streets hallucinating and was slightly irritable and agitated. She was consulted altered mental status and altered mental status is likely to secondary to underlying PCP-induced delirium along with transient cerebral hyperperfusion as well as metabolic acidosis. At this time, she is hemodynamically stable and saturating 100% via room air and has received IV hydration. RECOMMENDATIONS: At this time recommend: 1. Psychiatric consult for polysubstance abuse and hallucinations. 2. Aspirin 81 mg p.o. daily for stroke prevention. 3. Klonopin 1 mg p.o. b.i.d. p.r.n. for anxiety and continue to correct any underlying metabolic derangement. She is clinically stable. Stepan Valladares MD
--- NOTE | 2017-04-11 17:25 | CARD ---
APPROVED REPORT EKG Measurement Heart [id number] <Conclusion> Normal sinus rhythm with sinus arrhythmia Normal ECG
[2017-04-11] MEDS: metroNIDAZOLE IV 500 mg/100 ml 500 MG/100 ML BAG IVPB SCH (21:34)
--- NOTE | 2017-04-12 03:21 | HP ---
MAIN REASON FOR ADMISSION: Acute change in mental status. HISTORY OF PRESENT ILLNESS: The patient seen today on 04/11/2017 on medical floor. The patient was admitted with acute change in mental status. She was agitated. She took PCP because she wants to skip away from her stress, pressure, and problems. The patient is a mother of 2 kids and lives by herself. She also has history of chronic ulcerative colitis. Seen Dr. Hall, [facility] and she has been off medication and noncompliant, however, she came in recently. Apparently, she did have recent herpes zoster and was given Famvir for 5 days. I think, she did finish it, but she still complained of pain and discomfort on the thigh. The patient also came in addition to her PCP abuse and change in her mental status. Today, in the morning, she was more alert and she reported that her leg hurts and noted there is some redness in her left leg. She does shave her legs recently and it seems like left leg is painful, tender, and red. Otherwise, the patient has no new complaint. She has no nausea. She did complain earlier of abdominal discomfort, but right now she seems okay. PAST MEDICAL HISTORY: As I mentioned before ulcerative colitis. ALLERGIES: NO KNOWN ALLERGIES. SOCIAL HISTORY: As I mentioned, she has 2 kids. She never smoked. No drinking of alcohol. IMMUNIZATIONS: She received pneumococcal and influenza vaccine and tetanus toxoid vaccine. REVIEW OF SYSTEMS: As I mentioned, she does have abdominal pain on and off due to an ulcerative colitis, otherwise negative. PHYSICAL EXAMINATION: GENERAL: The patient is in bed. She seems more of her face is down, more of sadness on her face and she feels depressed. VITAL SIGNS: Temperature 97.5, heart rate 92, blood pressure 129/71, respirations 18, and saturation 100% on room air. HEAD AND NECK: Normal. No JVD. No thyromegaly. CHEST: Clear with good air entry. CARDIAC: First sound and second sound normal. ABDOMEN: Soft, mildly distended, but nontender. EXTREMITIES: There is left leg redness, 2 spots hot red and tender. Also her left trunk area, there is a shingle site, which seems dried and some scale forming. NEUROLOGIC: Normal. IMAGING STUDIES: She had a CT of the head, which was negative. Had abdominal and pelvic CT with IV contrast, which noted for constipation, mild wall thickening in the transverse colon, and mild colitis. LABORATORY STUDIES: Initially her white count was 13.0, hemoglobin 8.3, hematocrit 28.2, and platelets 388. Her chemistry noted for sodium 136, potassium 4.1, chloride 107, bicarbonate 12, which is low, BUN is 11, creatinine 0.8. Liver function tests within normal range, except AST of 81. The patient has CPK of 4353, which is very high and negative CK-MB. Albumin is normal 4.2 and globulin 3.2. Her urine was negative. Her toxicology was noted positive for PCP (phencyclidine). Alcohol is negative, salicylate is negative, and Tylenol negative. IMPRESSION AND PLAN: A 41-year-old female who came in with acute change in mental status. Noted to have low bicarbonate, acidotic. The patient is started on IV lactate 250 per hour, we will continue that, repeat lab in the morning. We will get also Psychiatry consult for her when she starts improving her mental status. We are also going to get a GI consult for mild colitis with Dr. Hall. We will keep the patient on liquid diet, when her mental status allow. We will put the patient on Rocephin 1 g daily IV and we will get ID consult with Dr. Contreras. For her shingles, we are going to resume the Famvir 500 mg p.o. q.8 hours. We will do isolation and we will continue current therapy. Continue current therapy for now. We will give her Klonopin p.r.n. for agitation or anxiety. Psychiatry consultation will see the patient in the morning. Sami Alvarez MD
--- NOTE | 2017-04-12 04:28 | CON ---
DATE: 04/11/2017 The patient is seen earlier today in room 364, bed 1. CHIEF COMPLAINT: Loose bowel movements and weakness and abdominal cramps. HISTORY OF PRESENT ILLNESS: This is a 41-year-old female with ulcerative colitis, anemia, polysubstance abuse, anxiety, bipolar, depression, who was admitted with a change in mental status, rhabdomyolysis, leukocytosis and diarrhea. REVIEW OF SYSTEMS: Reveal that the patient states she is much better. She is awake and alert. She knows where she is in . No nausea or vomiting. She does have some diarrhea, some abdominal pain, more in the right side in the epigastric area. No fevers and chills. There is diarrhea. No bright red blood per rectum. No melena. No dysuria or frequency. PAST MEDICAL HISTORY: Significant for ulcerative colitis, anemia, polysubstance abuse, anxiety, bipolar and depression. PAST SURGICAL HISTORY: x2 and foot surgery. ALLERGIES: THE PATIENT HAS NO KNOWN ALLERGIES. MEDICATIONS AT HOME: Reveals the patient takes no medications at home. She usually takes her ulcerative medications, but she is not on any medications at this time. PHYSICAL EXAMINATION: GENERAL/VITAL SIGNS: She is in bed, in no acute distress with a temperature of 98; heart rate of 105, blood pressure is 92/53; respiratory rate of 18. HEENT: Unremarkable. NECK: Supple. LUNGS: Have decreased breath sounds. HEART: Normal S1 and S2. ABDOMEN: Soft, nontender. LABORATORY EXAMINATION: Reveals the patient has white count on admission which was yesterday 14,300 and today's white count is 7.9 with hemoglobin of 7 and platelets of 358. The patient's blood gases are noted. Chemistries reveal the patient's BUN is 7, creatinine is 0.9, carbon dioxide on admission was 12 with anion gap of 21. The patient has a CK of 4353 with AST of 81, and urinalysis is noted and toxicology was noted. The patient had a CAT scan of the abdomen which reveals to be colitis, and chest x-ray which is reported to be negative. ASSESSMENT AND PLAN: This is a 41-year-old female with ulcerative colitis, anemia, polysubstance abuse, anxiety, bipolar and depression with sepsis secondary to colitis with metabolic acidosis, increased anion gap, most likely with exacerbation of her ulcerative colitis, must rule out pseudomembranous colitis versus other etiology of colitis and since she has not been on her medication, less likely of the medications induced immune suppressed state. We will check on the stool cultures, blood cultures, urine cultures. We will order HIV because of her age and her white count has already improved, and we will follow closely with you with ceftriaxone and Flagyl, pending panculture results. Laurent Contreras MD
[2017-04-12] MEDS: metroNIDAZOLE IV 500 mg/100 ml 500 MG/100 ML BAG IVPB SCH ×2 (06:28→13:16)
[2017-04-12 07:45] VITALS: RESP 20
--- NOTE | 2017-04-12 08:41 | CP.PCM.CON ---
<Johana Mendes - Last Filed: 04/12/17 09:55> History of Present Illness - History of Present Illness History of Present Illness: PGY4 Initial GI Consult note Tessie Cavazos is a 40 year old female with history of Ulcerative colitis diagnosed thirteen years prior, followed by Dr. Hall in the last year, presenting to [facility] after wandering the streets for days on PCP. She admitted to abd pain, which she notes started 2 days ago. She notes mat the pain is diffuse and intermittent. She states that it peaks at 6 and then dissipates. Alleviating factors include passing flatus and having a BM. She denies any aggravating factors. She denies any BRBPR, melena, hematemesis or coffee-ground emesis. She has had 11 prior pRBC transfusion on chart review from 2011 to 2013. She notes having a BM daily, which is formed, but still has a feeling of incomplete bowel evacuation. Denies joint pain, back pain, skin sores, kidney stones, or episcleritis. She notes prior therapy with Apriso, Asacol, Remicade, and most recently Humira and 6-MP for the last year to 1.5 years. Patient endorses completion of prednisone taper prescribed in July. She has not follow- up with Dr. Hall since 07/2016 and is not currently on entyvio or any other tx regiment. Family-extensive IBD history Maternal and Paternal side, notes paternal aunt- passed of complication's from Crohn's disease, parents healthy, great grandparant -colon cancer, unknown age of diagnosis Social-denies tobacco, alcohol, illicit drug use Surgery-none Endo hx: 04/2015 colonoscopy: circumferential inflammation, erythema, granularity , loss of vasculature, and psedopolyps from rectum to transverse Past Patient History - Infectious Disease Hx of Infectious Diseases: None - Tetanus Immunizations Tetanus Immunization: Unknown - Past Medical History & Family History Past Medical History?: Yes - Past Social History Smoking Status: Never Smoked - CARDIAC Hx Cardiac Disorders: No - PULMONARY Hx Respiratory Disorders: No Hx Tuberculosis: No - NEUROLOGICAL Hx Neurological Disorder: No - HEENT Hx HEENT Problems: No Other/Comment: wears rx glasses - RENAL Hx Chronic Kidney Disease: No - ENDOCRINE/METABOLIC Hx Endocrine Disorders: No - HEMATOLOGICAL/ONCOLOGICAL Other/Comment: multiple blood transfusions - INTEGUMENTARY Hx Dermatological Problems: No Other/Comment: tatoos - MUSCULOSKELETAL/RHEUMATOLOGICAL Hx Falls: No - GASTROINTESTINAL Hx Gastrointestinal Disorders: Yes (gi bleed) Other/Comment: colitis - 13 years, tried remicade, aprizo, asacol, humira, mercaptopurine stopped working after 1 yr - GENITOURINARY/GYNECOLOGICAL Hx Genitourinary Disorders: No Hx Sexually Transmitted Disorders: No Other/Comment: denies fibroids - PSYCHIATRIC Hx Anxiety: Yes Hx Bipolar Disorder: Yes Hx Depression: Yes (13 years) Hx Emotional Abuse: No Hx Post Traumatic Stress Disorder: Yes (13 years ago) Hx Physical Abuse: No Hx Substance Use: Yes (PCP, 4 days ago) - SURGICAL HISTORY Hx Appendectomy: No Hx Orthopedic Surgery: Yes (bilateral feet, twisted, several years ago) Other/Comment: x2, twisted metatarsals and bunion sx to feet - ANESTHESIA Hx Anesthesia: Yes Hx Anesthesia Reactions: No Hx Malignant Hyperthermia: No Meds Allergies/Adverse Reactions: Allergies Allergy/AdvReac Type Severity Reaction Status Date / Time No Known Allergies Allergy Verified 04/10/17 19:55 - Medications Medications: Current Medications Clonazepam (Klonopin) 1 mg PO BID PRN; Protocol PRN Reason: Anxiety Last Admin: 04/12/17 06:31 Dose: 1 mg Famciclovir (Famvir) 500 mg PO Q8 [facility] Last Admin: 04/12/17 06:31 Dose: 500 mg Lactated Ringer's (Lactated Ringer's) 1,000 mls @ 250 mls/hr IV .Q4H [facility] Last Admin: 04/11/17 21:36 Dose: 250 mls/hr Ceftriaxone Sodium (Rocephin 1 Gram Ivpb (D5w)) 1 gm in 100 mls @ 100 mls/hr IVPB DAILY KAREN PRN Reason: Protocol Metronidazole (Flagyl) 500 mg in 100 mls @ 100 mls/hr IVPB Q8 KAREN PRN Reason: Protocol Stop: 04/19/17 22:01 Last Admin: 04/12/17 06:28 Dose: 100 mls/hr Ketorolac Tromethamine (Toradol) 15 mg IVP Q6 PRN PRN Reason: Pain, moderate (4-7) Last Admin: 04/11/17 23:27 Dose: 15 mg Pantoprazole Sodium (Protonix Inj) 40 mg IVP DAILY KAREN Physical Exam - Constitutional Appears: Well, No Acute Distress - Head Exam Head Exam: ATRAUMATIC, NORMOCEPHALIC - Eye Exam Eye Exam: Normal appearance - ENT Exam ENT Exam: Mucous Membranes Moist - Respiratory Exam Respiratory Exam: Clear to Auscultation Bilateral, NORMAL BREATHING PATTERN. absent: Prolonged Expiratory Phase, Rales, Rhonchi - Cardiovascular Exam Cardiovascular Exam: REGULAR RHYTHM, +S1, +S2 - GI/Abdominal Exam GI & Abdominal Exam: Hypoactive Bowel Sounds, Soft, Tenderness. absent: Distended, Organomegaly, Rigid Additional comments: lower quadrants B/L - Extremities Exam Extremities exam: Negative for: joint swelling, pedal edema - Neurological Exam Neurological exam: Alert, Oriented x3 - Psychiatric Exam Psychiatric exam: Normal Affect, Normal Mood - Skin Skin Exam: Dry, Intact, Normal Color, Warm Results - Vital Signs Recent Vital Signs: Last Vital Signs Temp 98.6 F 04/12/17 07:44 Pulse 98 H 04/12/17 07:44 Resp 20 04/12/17 07:44 BP 111/67 04/12/17 07:44 Pulse Ox 97 04/12/17 07:44 - Labs Result Diagrams: 04/11/17 09:40 04/11/17 09:40 Labs: Laboratory Results - last 24 hr 04/11/17 04/11/17 04/11/17 09:40 09:40 11:00 WBC 7.9 D RBC 3.78 Hgb 7.8 L Hct 26.1 L MCV 69.0 L MCH 20.6 L MCHC 29.9 L RDW 19.2 H Plt Count 358 MPV 9.3 Sodium 139 Potassium 3.6 Chloride 110 H Carbon Dioxide 18 L Anion Gap 15 BUN 7 Creatinine 0.9 Est GFR ( Amer) > 60 Est GFR (Non-Af Amer) > 60 Random Glucose 63 L Calcium 8.8 Blood Type O POSITIVE Antibody Screen Negative BBK History Checked Patient has bt Assessment & Plan - Assessment and Plan (Free Text) Assessment: Tessie Cavazos is a 41F w/ hx of UC, polysubstance abuse, and chronic anemia who presented to the ER after being found wandering the streets on PCP. She also noted having abd pain. CT abd revealed diffuse stool burden of the large colon. 1. Constipation 2. Chronic anemia 3. Mild colitis 4. Hx of UC Plan -continue liquid diet for today -start miralax and stoney -if no improvement in BM, consider water enema -refused recal exam, but refuses any rectal bleeding -no clinical signs of UC flair -Unsure about singles fair, lesion on the abd is non-vesicular -non-complaint on entyvio -avoid narcotics and NSAIDS -will need outpt follow-up -rest of care as per primary team and psych D/W Dr. Hall <Mike Hall - Last Filed: 04/12/17 12:32> Meds - Medications Medications: Current Medications Clonazepam (Klonopin) 1 mg PO BID PRN; Protocol PRN Reason: Anxiety Last Admin: 04/12/17 06:31 Dose: 1 mg Famciclovir (Famvir) 500 mg PO Q8 [facility] Last Admin: 04/12/17 06:31 Dose: 500 mg Lactated Ringer's (Lactated Ringer's) 1,000 mls @ 250 mls/hr IV .Q4H [facility] Last Admin: 04/11/17 21:36 Dose: 250 mls/hr Ceftriaxone Sodium (Rocephin 1 Gram Ivpb (D5w)) 1 gm in 100 mls @ 100 mls/hr IVPB DAILY KAREN PRN Reason: Protocol Last Admin: 04/12/17 11:21 Dose: Not Given Metronidazole (Flagyl) 500 mg in 100 mls @ 100 mls/hr IVPB Q8 KAREN PRN Reason: Protocol Stop: 04/19/17 22:01 Last Admin: 04/12/17 06:28 Dose: 100 mls/hr Pantoprazole Sodium (Protonix Inj) 40 mg IVP DAILY [facility] Last Admin: 04/12/17 10:51 Dose: Not Given Polyethylene Glycol (Miralax) 17 gm PO TID [facility] Last Admin: 04/12/17 10:51 Dose: Not Given Sennosides (Senokot Tab) 17.2 mg PO HS [facility] Results - Vital Signs Recent Vital Signs: Last Vital Signs Temp 98.6 F 04/12/17 07:44 Pulse 98 H 04/12/17 07:44 Resp 20 04/12/17 07:44 BP 111/67 04/12/17 07:44 Pulse Ox 97 04/12/17 07:44 - Labs Result Diagrams: 04/11/17 09:40 04/11/17 09:40 Labs: Laboratory Results - last 24 hr 04/11/17 11:00 Blood Type O POSITIVE Antibody Screen Negative BBK History Checked Patient has bt Attending/Attestation - Attestation I have personally seen and examined this patient.: Yes I have fully participated in the care of the patient.: Yes I have reviewed all pertinent clinical information: Yes Notes (Text): 04/12/17 12:21 I have seen and examined patient with GI fellow. Agree with above documentation with the following additions. In brief, this is a 41 year old female with history of ulcerative colitis (diagnosed 2008), polysubstance abuse , chronic anemia who presents to the hospital with altered mental status after being found wandering the street under the influence of PCP drug use. She carries a long history of ulcerative colitis and medication non-compliance. She was last seen in my office in June 2016 at which point she was maintained on 6-MP and humira, though she self discontinued 6-MP due to side effects of hair loss and admitted to non-compliance with scheduled Humira. In the past she has also used Remicade, though after office visit in June she was determined to have loss of response to medication and was changed to Entyvio. Unfortunately, she has also been non-compliant with this regimen and has not received an infusion in over 3 months. She currently appears lethargic though denies abdominal pain, nausea, vomiting, fever/chills, weight loss, or rectal bleeding. She complains of constipation and a sense of incomplete evacuation with bowel movements. Her last colonoscopy was in 2015 which showed cicumferential colitis extending from rectum to transverse colon. Ulcerative colitis - highly non-compliant with medical therapy Chronic anemia Polysubstance abuse Altered mental status in setting of recent PCP use Abdominal shingles CT imaging reviewed by me showing fecal retention and mild thickening of transverse colon without any nacho-colonic abscess - Diet as tolerated - Continue with antibiotic therapy, monitor blood cultures - Begin bowel regimen to prevent constipation - Follow up psychiatry recommendations - H/H stable, continue to monitor, no overt blood loss noted - Management of shingles as per medical team / ID - Patient requires proper outpatient follow up prior to initiation of additional ulcerative colitis medication. Given her continued non-compliance along with ongoing substance abuse, she remains high risk for recurrent disease exacerbation and antibody formation. Will continue to monitor patient clinical course.
[2017-04-12] MEDS ORDERED: cefTRIAXone 1 gm 1 GM/100 ML BAG IVPB SCH (10:00)
[2017-04-12] MEDS: Lactated Ringer's 1,000 ML IV SCH ×2 (10:30→15:52)
[2017-04-12] MEDS: POLYETHYLENE GLYCOL 3350 17 GM/Dose PACKET PO SCH ×2 (10:51→13:17)
[2017-04-12 12:19] LABS: HEMATOCRIT 25.5 % (36.0-48.0); MEAN CELL VOLUME 69.7 fl (80.0-105.0); MEAN CORPUSCULAR HGB CONC 30.2 g/dl (31.0-37.0); MEAN PLATELET VOLUME 10.2 fl (7.0-11.0); RED CELL DISTRIBUTION WIDTH 19.8 % (11.5-14.5); WHITE BLOOD COUNT 6.7 10^3/ul (4.5-11.0)
[2017-04-12 13:13] LABS: IRON 15 ug/dL (45-180)
--- NOTE | 2017-04-12 15:40 | CP.PCM.PCO ---
Physician Communication Note - Physician Communication Note Physician Communication Note: pt will be seen by
[2017-04-12 17:04] VITALS: BP 143/98; PULSE 113; TEMP 99.1; O2SAT 100
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
== END 2017-04-12 18:14 | DRG 558 ==
LOC: ED 19:35 → ERH 04-11 03:01 → 3RNO 04-11 05:12
PROVIDERS: ADMIT Internal Medicine; ATTEND Internal Medicine
DX: M62.82 Rhabdomyolysis (principal); E87.3 Alkalosis; E87.2 Acidosis; B02.9 Zoster without complications; K51.90 Ulcerative colitis, unspecified, without complications; F16.159 Hallucinogen abuse with hallucinogen-induced psychotic disorder, unspecified; F11.10 Opioid abuse, uncomplicated; D64.9 Anemia, unspecified; K59.00 Constipation, unspecified; F31.9 Bipolar disorder, unspecified; Z91.19 Patient's noncompliance with other medical treatment and regimen

== ENCOUNTER 2017-04-12 18:20 | Inpatient (IN) | payer MEDICARE, MEDICAID ==
[2017-04-11 11:44] VITALS: BMI 31.2
[2017-04-12] MEDS ORDERED: Magnesium Hydroxide Susp 30 ml UD PO PRN (19:04)
[2017-04-12] MEDS ORDERED: Alum-Mag Hydrox-Simethicone Susp (30 mL) PO PRN (19:04)
[2017-04-12 19:26] VITALS: O2SAT 95
[2017-04-13 07:58] LABS: GLUCOSE,FASTING 77 mg/dL (65-110)
[2017-04-13 08:18] LABS: FREE T4 1.53 ng/dL (0.78-2.19)
[2017-04-13 08:21] LABS: CHOLESTEROL 177 mg/dL (130-200)
[2017-04-13 08:32] LABS: THYROID STIMULATING HORMONE 0.97 mIU/mL (0.46-4.68)
--- NOTE | 2017-04-13 08:42 | PCM.BM ---
Treatment Plan Problems - Problems identified on initial assessmt Delusions Date Initiated: 04/13/17 Time Initiated: 08:41 Assessment reference: NA Status: Active Priority: 1 Thought Process Date Initiated: 04/13/17 Time Initiated: 08:42 Assessment reference: NA Status: Active Priority: 2 Agitated Behavior Date Initiated: 04/13/17 Time Initiated: 08:42 Assessment reference: NA Status: Active Priority: 3 Guarded Behavior Date Initiated: 04/13/17 Time Initiated: 08:42 Assessment reference: NA Status: Active Priority: 4 Treatment assets and liabiliti Patient Assests: ADL independent, negotiates basic needs Patient Liabilities: substance abuse - Milieu Protocol Maintain good personal hygiene: daily Encourage regular showers, daily Remind patient to perform daily oral care, daily Assist patient to perform ADL's Maintain personal safety: every shift Educate patient to report safety concerns to staff, every shift Monitor environment for contraband/sharps Medication safety: Monitor for expected outcome, potential side effects: every shift, Assess barriers to learning: every shift, Assess readiness for medication education: every shift Discharge/Continuing Care - Education Needs Education Needs: Patient Medication, Patient Diagnosis/Disease Process, Patient Coping Skills, Patient Aftercare Safety Plan - Discharge Discharge Criteria: Tolerates medication w/o severe side effects, Free of paranoid thoughts, Free of agitation, Normal sleep pattern, Reduction of target symptoms Discharge to:: Home
--- NOTE | 2017-04-13 11:26 | CP.PCM.PN ---
<Johana Mendes - Last Filed: 04/13/17 12:23> Subjective - Date & Time of Evaluation Date of Evaluation: 04/13/17 Time of Evaluation: 07:45 - Subjective Subjective: PGY 4 GI Follow-up Pt seen and examined beside No complaints denies any abd pain states that she had a BM overnight good appetite ROS: 10 point ROS conducted, neg other than above Objective - Vital Signs/Intake and Output Vital Signs (last 24 hours): Temp Pulse Resp BP Pulse Ox 98.2 F 76 16 106/65 95 04/12/17 18:39 04/12/17 18:39 04/12/17 19:14 04/12/17 18:39 04/12/17 18:39 - Medications Medications: Current Medications Acetaminophen (Tylenol 325mg Tab) 650 mg PO Q4 PRN PRN Reason: Pain, Mild (1-3) Al Hydrox/Mg Hydrox/Simethicone (Maalox Plus 30 Ml) 30 ml PO DAILY PRN PRN Reason: Upset Stomach Lorazepam (Ativan) 0.5 mg PO Q4H PRN; Protocol PRN Reason: Anxiety Magnesium Hydroxide (Milk Of Magnesia) 30 ml PO DAILY PRN PRN Reason: Constipation - Constitutional Appears: No Acute Distress - Head Exam Head Exam: ATRAUMATIC, NORMOCEPHALIC - Eye Exam Eye Exam: Normal appearance - ENT Exam ENT Exam: Mucous Membranes Moist, Normal Exam - Respiratory Exam Respiratory Exam: Clear to Ausculation Bilateral, NORMAL BREATHING PATTERN. absent: Prolonged Expiratory Phase, Rales, Rhonchi, Respiratory Distress - Cardiovascular Exam Cardiovascular Exam: REGULAR RHYTHM, +S1, +S2 - GI/Abdominal Exam GI & Abdominal Exam: Soft, Normal Bowel Sounds. absent: Guarding, Rigid, Tenderness - Extremities Exam Extremities Exam: absent: Joint Swelling, Pedal Edema - Neurological Exam Neurological Exam: Alert, Awake, Oriented x3 - Psychiatric Exam Psychiatric exam: Normal Affect, Normal Mood - Skin Skin Exam: Dry, Intact, Normal Color, Warm Assessment and Plan - Assessment and Plan (Free Text) Assessment: Tessie Cavazos is a 41F w/ hx of UC, polysubstance abuse, and chronic anemia who presented to the ER after being found wandering the streets on PCP. She also noted having abd pain. CT abd revealed diffuse stool burden of the large colon. 1. Constipation 2. Chronic anemia 3. Mild colitis 4. Hx of UC Plan -pepcid daily -Continue miralax with senna at [facility] -recommend miralax at home -recommend follow-up with Dr Hall to discuss UC treatment options -avoid narcotics - H/H stable, continue to monitor, no overt blood loss noted - Management of shingles as per medical team / ID - Patient requires proper outpatient follow up prior to initiation of additional ulcerative colitis medication. Given her continued non-compliance along with ongoing substance abuse, she remains high risk for recurrent disease exacerbation and antibody formation. Will continue to monitor patient clinical course. -will sign off D/W Dr. Singh <Marek Singh - Last Filed: 04/13/17 13:10> Objective - Vital Signs/Intake and Output Vital Signs (last 24 hours): Temp Pulse Resp BP Pulse Ox 98.2 F 76 16 106/65 95 04/12/17 18:39 04/12/17 18:39 04/12/17 19:14 04/12/17 18:39 04/12/17 18:39 - Medications Medications: Current Medications Acetaminophen (Tylenol 325mg Tab) 650 mg PO Q4 PRN PRN Reason: Pain, Mild (1-3) Al Hydrox/Mg Hydrox/Simethicone (Maalox Plus 30 Ml) 30 ml PO DAILY PRN PRN Reason: Upset Stomach Lorazepam (Ativan) 0.5 mg PO Q4H PRN; Protocol PRN Reason: Anxiety Magnesium Hydroxide (Milk Of Magnesia) 30 ml PO DAILY PRN PRN Reason: Constipation Attending/Attestation - Attestation I have personally seen and examined this patient.: Yes I have fully participated in the care of the patient.: Yes I have reviewed all pertinent clinical information, including history, physical exam and plan: Yes Notes (Text): 04/13/17 13:09 41 year old female with h/o UC, substance abuse admitted with psych issues, also with abdominal pain that is now imroved. 1. Ulcerative colitis Plan: -follow up with Dr. Hall outpatient, rest as above -symptomatically improved after treatment of constipation
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
[2017-04-14] MEDS: Pantoprazole 40 mg EC Tab PO SCH (06:56)
[2017-04-14] MEDS: Cefpodoxime (Vantin) 200 mg Tab PO SCH ×2 (06:56→17:52)
[2017-04-14 08:27] LABS: BLOOD UREA NITROGEN < 2 mg/dL (7-21); CALCIUM 8.7 mg/dL (8.4-10.5); CARBON DIOXIDE 21 mmol/L (21-33); CHLORIDE 107 mmol/L (98-107); GFR AFRICAN-AMERICAN > 60; GLUCOSE,RANDOM 79 mg/dL (70-110); POTASSIUM 3.5 mmol/L (3.6-5.0); SODIUM 140 mmol/L (132-148)
[2017-04-14] MEDS: Iron Complex Polysacch 150mg Cap PO SCH (08:44)
[2017-04-14 12:19] LABS: HEMATOCRIT 27.3 % (36.0-48.0); MEAN CELL VOLUME 69.6 fl (80.0-105.0); MEAN CORPUSCULAR HEMOGLOBIN 20.9 pg (25.0-35.0); RED CELL DISTRIBUTION WIDTH 20.2 % (11.5-14.5)
[2017-04-14] MEDS: Potassium Chloride 20 mEq ER Tab PO SCH (12:57)
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
[2017-04-14] MEDS ORDERED: POLYETHYLENE GLYCOL 3350 17 GM/Dose PACKET PO PRN (18:02)
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
[2017-04-15 07:18] VITALS: BP 115/78; PULSE 90; RESP 20; TEMP 98.1
[2017-04-15 07:55] LABS: HEMATOCRIT 28.1 % (36.0-48.0); MEAN CELL VOLUME 69.6 fl (80.0-105.0); MEAN CORPUSCULAR HGB CONC 30.2 g/dl (31.0-37.0); MEAN PLATELET VOLUME 9.9 fl (7.0-11.0); RED CELL DISTRIBUTION WIDTH 19.8 % (11.5-14.5); WHITE BLOOD COUNT 4.6 10^3/ul (4.5-11.0)
[2017-04-15] MEDS: Iron Complex Polysacch 150mg Cap PO SCH (08:35)
[2017-04-15] MEDS: Potassium Chloride 20 mEq ER Tab PO SCH (08:35)
[2017-04-15] MEDS: Pantoprazole 40 mg EC Tab PO SCH (08:36)
[2017-04-15] MEDS: Cefpodoxime (Vantin) 200 mg Tab PO SCH (08:36)
--- NOTE | 2017-04-15 11:22 | PN ---
DATE: 04/14/2017 SUBJECTIVE: A 41-year-old female came in with drug induced psychosis. She is in psych floor. The patient complained of generalized abdominal pain. Clinically and mentally, she seems better, more talkative. Her facial expressions are better. PHYSICAL EXAMINATION: VITAL SIGNS: On 04/14/2017, temperature 97.4, heart rate 82, blood pressure 103/87, and respirations 20. HEAD AND NECK: Normal. No JVD. No thyromegaly. CHEST: Clear. CARDIAC: First sound and second sound normal. No murmur, rub or gallop. ABDOMEN: Soft, there is mild generalized tenderness all over. EXTREMITIES: There is no edema. NEUROLOGIC: Normal. IMPRESSION AND PLAN: 1. Acute change in mental status due to medications or drug-induced psychiatric illness, history of alcohol abuse, history of drug abuse, and history of psychiatric disorders in the past. We will continue to follow up with the psychiatrist, Dr. Alves who has seen the patient and currently, she is getting Ativan p.r.n. and she is seen by behavioral team and seems improving and getting better clinically. 2. History of ulcerative colitis: She does have CAT scan, mild colitis. Seen by the GI team Dr. Marek Singh and Dr. Hall. The patient needs repeat colonoscopy and need to be back on her immunotherapy Remicade and followup with the GI for that. Continue Vantin and continue Flagyl and will follow up with GI consultations. 3. Chronic anemia: She has anemia, chronic. We will continue iron b.i.d. and follow up. She will be seen as outpatient. The patient need also to followup with GI for that. 4. Continue current therapy. Current medications she is getting is Ativan 0.5 mg every 4 hours, iron pills, and Flagyl 500 q.8 hours. She has got potassium replacement. She has Maalox, milk of magnesia, MiraLax, Protonix, Tylenol, and Vantin. Continue current medications. Follow up clinically. Sami Alvarez MD
== END 2017-04-15 15:07 | disposition left against medical advice (07) | DRG 894 ==
LOC: PSYC 18:20
PROVIDERS: ADMIT Psychiatry & Neurology Addiction Medicine; ATTEND Psychiatry & Neurology Addiction Medicine
DX: F16.159 Hallucinogen abuse with hallucinogen-induced psychotic disorder, unspecified (principal); K51.90 Ulcerative colitis, unspecified, without complications; D50.9 Iron deficiency anemia, unspecified; F32.9 Major depressive disorder, single episode, unspecified; F41.9 Anxiety disorder, unspecified

== ENCOUNTER 2017-04-17 16:27 | Emergency (ER) | payer MEDICARE, MEDICAID ==
[2017-04-17 16:33] VITALS: BMI 28.3
[2017-04-17 16:40] VITALS: TEMP 98.6
[2017-04-17] MEDS ORDERED: Sodium Chloride 0.9% 500 ML IV STA (17:04)
[2017-04-17 17:58] LABS: ALB/GLOB RATIO 1.3 (1.1-1.8); ALKALINE PHOSPHATASE 76 U/L (38-126); ALT/SGPT 29 U/L (7-56); AST/SGOT 28 U/L (14-36); BILIRUBIN,TOTAL 0.5 mg/dL (0.2-1.3); BLOOD UREA NITROGEN 3 mg/dL (7-21); CALCIUM 9.3 mg/dL (8.4-10.5); CARBON DIOXIDE 20 mmol/L (21-33); CHLORIDE 105 mmol/L (98-107); GFR AFRICAN-AMERICAN > 60; GLUCOSE,RANDOM 82 mg/dL (70-110); POTASSIUM 3.3 mmol/L (3.6-5.0); SODIUM 143 mmol/L (132-148); TOTAL PROTEIN 7.9 g/dL (5.8-8.3)
[2017-04-17 18:16] LABS: PH,URINE 6.5 (4.7-8.0); URINE BILIRUBIN NEGATIVE (NEGATIVE); URINE BLOOD TRACE-INTACT (NEGATIVE); URINE GLUCOSE (UA) NEGATIVE (NEGATIVE); URINE KETONE NEGATIVE (NEGATIVE); URINE LEUKOCYTE ESTERASE SMALL Leu/uL (NEGATIVE); URINE PROTEIN NEGATIVE mg/dL (<30 mg/dL); URINE UROBILINOGEN 0.2 E.U./dL (<1 E.U./dL)
--- NOTE | 2017-04-17 18:18 | ED PDOC ---
Arrival/HPI - General Historian: Patient <Omayra Garcia PA-C - Last Filed: 04/17/17 20:19> <RodriguezDiane Mikael - Last Filed: 04/17/17 23:03> - General Chief Complaint: GI Problem Time Seen by Provider: 04/17/17 17:02 - History of Present Illness Narrative History of Present Illness (Text): 04/17/17 18:22 41 yo F presents for psychiatric evaluation after ingestion 5-10 unknown pills she found in her medicine cabinet. Patient states that the pills were in a regular medicine container with no labels, they were not her medications, she does not know who they belong to, she describes the pills as blue colored capsules. 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 Reports feeling depressed, refuses to elaborate as to why she ingested the pills. Other psychiatric symptoms: (-) hallucinations, (-) suicidal ideation, (-) homicidal ideation. Otherwise: (-) trauma, (-) fever, (-)headache, (-) dyspnea, (-) chest pain, (-) palpitations, ( -) substance abuse, (-) plan. (Omayra Garcia PA-C) Past Medical History - Provider Review Nursing Documentation Reviewed: Yes - Past History Past History: No Previous - Infectious Disease Hx of Infectious Diseases: None - Tetanus Immunization Tetanus Immunization: Unknown - Cardiac Hx Cardiac Disorders: No - Pulmonary Hx Respiratory Disorders: No Hx Tuberculosis: No - Neurological Hx Neurological Disorder: No - HEENT Hx HEENT Disorder: No Other/Comment: wears rx glasses - Renal Hx Renal Disorder: No - Endocrine/Metabolic Hx Endocrine Disorders: No - Hematological/Oncological Other/Comment: multiple blood transfusions - Integumentary Hx Dermatological Disorder: No Other/Comment: tatoos - Musculoskeletal/Rheumatological Hx Falls: No - Gastrointestinal Hx Gastrointestinal Disorders: Yes (gi bleed) Other/Comment: colitis - 13 years, tried remicade, aprizo, asacol, humira, mercaptopurine stopped working after 1 yr - Genitourinary/Gynecological Hx Genitourinary Disorders: No Hx Sexually Transmitted Diseases: No Other/Comment: denies fibroids - Psychiatric Hx Anxiety: Yes Hx Bipolar Disorder: Yes Hx Depression: Yes (13 years) Hx Emotional Abuse: No Hx Post Traumatic Stress Disorder: Yes (13 years ago) Hx Physical Abuse: No Hx Substance Use: Yes - Past Surgical History Past Surgical History: No Previous - Surgical History Hx Appendectomy: No Hx Orthopedic Surgery: Yes (bilateral feet, twisted, several years ago) Other/Comment: x2, twisted metatarsals and bunion sx to feet - Anesthesia Hx Anesthesia: Yes Hx Anesthesia Reactions: No Hx Malignant Hyperthermia: No - Suicidal Assessment Suicide Risk Precautions: Suicide Precautions <Omayra Garcia PA-C - Last Filed: 04/17/17 20:19> Family/Social History - Physician Review Nursing Documentation Reviewed: Yes Family/Social History: Unknown Family HX Smoking Status: Never Smoked Hx Alcohol Use: Yes Frequency of alcohol use: Socially Hx Substance Use: Yes Substance used: PCP Hx Substance Use Treatment: No <Omayra Garcia PA-C - Last Filed: 04/17/17 20:19> Allergies/Home Meds <Omayra Garcia PA-C - Last Filed: 04/17/17 20:19> <Diane Rodriguez - Last Filed: 04/17/17 23:03> Allergies/Adverse Reactions: Allergies No Known Allergies Allergy (Verified 04/12/17 18:42) Home Medications: Home Meds Medication Instructions Recorded Confirmed No Known Home Med 04/17/17 04/17/17 Review of Systems - Review of Systems Constitutional: absent: Fatigue, Weight Change, Fevers ENT: absent: Sore Throat, Rhinorrhea, Epistaxis Respiratory: absent: SOB, Cough, Sputum Cardiovascular: absent: Chest Pain, Palpitations, Edema Gastrointestinal: Abdominal Pain, Nausea, Vomiting. absent: Constipation, Appetite Changes Genitourinary Female: absent: Dysuria, Frequency, Hematuria Musculoskeletal: absent: Arthralgias, Back Pain, Neck Pain Skin: absent: Rash, Pruritis, Skin Lesions Neurological: absent: Headache, Dizziness, Focal Weakness Psychiatric: Anxiety, Depression. absent: Suicidal Ideation <Omayra Garcia PA-C - Last Filed: 04/17/17 20:19> Physical Exam <Omayra Garcia PA-C - Last Filed: 04/17/17 20:19> <Diane Rodriguez - Last Filed: 04/17/17 23:03> - Physical Exam Narrative Physical Exam (Text): 04/17/17 18:26 GENERAL APPEARANCE: Patient is awake, alert, oriented x 3, in no acute distress. SKIN: Warm, dry; (-) cyanosis. HEAD: (-) scalp swelling, (-) scalp tenderness. EYES: (-) conjunctival pallor, (-) scleral icterus, (-) nystagmus. ENMT: Mucous membranes moist. Airway patent: (-) stridor. NECK: (-) tenderness, (-) stiffness, (-) lymphadenopathy. CHEST AND RESPIRATORY: (-) rales, (-) rhonchi, (-) wheezes; breath sounds equal. ABDOMEN: Soft, (-) distention, (-) tenderness, (-) guarding. NEURO AND PSYCH: Mental status as above. Affect: flat. Memory: Intact. 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 Strength and DTRs symmetric. (Omayra Garcia PA-C) Vital Signs Temp Pulse Resp BP Pulse Ox 04/17/17 20:03 80 17 119/78 99 04/17/17 18:27 89 17 120/81 99 04/17/17 16:39 98.6 F 97 H 18 116/72 100 Medical Decision Making <Omayra Garcia PA-C - Last Filed: 04/17/17 20:19> Re-evaluation Time: 22:59 Reassessment Condition: Re-examined, Improved - Lab Interpretations I have reviewed the lab results: Yes Interpretation: Abnormal lab values <Diane Rodriguez - Last Filed: 04/17/17 23:03> ED Course and Treatment: 04/17/17 18:26 41 yo F presents for psychiatric evaluation after ingestion 5-10 unknown pills she found in her medicine cabinet. Plan: -- Labs -- IV fluids -- Urinalysis -- EKG -- CXR -- PES evaluation -- Reassess and disposition -- One to one observation EKG : ST at 107 bpm, normal QT/QTc interval, no acute ST changes, as read by SUE Bro d/w Ed from Poison Control, recommends observation in the ER for at least 4 -6 hours to ensure that the patient doesn't develop any symptoms of a toxc overdose, and a repeat EKG in 2-3 hours. PES called to evaluate the patient. Will continue to observe the patient. Labs reviewed : K 3.3, CO2 20, urine tox (-), salicylates (-), acetaminophen (-) . Patient given Kcl 40 mEq PO. On re-evaluation, patient is resting in bed comfortably, remains AAOx3, is calm and cooperative to staff. Has no additional complaints at this time. 04/17/17 20:15 Patient seen and evaluated by PES and is cleared for outpatient psych follow up. Repeat EKG : NSR at 90 bpm, normal QT/QTc interval, no acute ST changes. VS: P 80 BP 119/78 R 17 O2sat 99%RA On second re-evaluation, patient is sitting up in bed comfortably, remains AAOx3 , is still calm and cooperative to staff with no complaints at this time. Repeat neuro exam shows no acute focal findings. Will continue to observe in the ER. Patient remains stable in the ER and is not displaying any symptoms or signs of toxic overdose. Case endorsed to SUE Rodriguez pending further re-evaluation and final disposition. (Jose RODRÍGUEZ,Omayra Chung) 04/17/17 21:11 Case was signed out to me by Joe Garcia PA-C. Patient appears well in no acute distress. Lungs CTA b/l. Denies abdominal pain, sob, cp, palpitation, HI , or hallucination at this time. Patient was evaluated early by PES and recommended ou-patient follow up. EKG and labs were reviewed. Hypokalemia was treated with +K. Patient admits chronic anemia. Patient stated she feels well and she wishes she would be discharge home. Patient understood plan to d/c home and follow up with psychiatrist as out-pt. CXR: NAD (Diane Rodriguez) - Lab Interpretations Lab Results: 04/17/17 20:00 04/17/17 17:39 Lab Results 04/17/17 21:00: Urine HCG, Qual Negative 04/17/17 20:00: Urine Opiates Screen Negative, Urine Methadone Screen Negative, Ur Barbiturates Screen Negative, Ur Phencyclidine Scrn Positive H, Ur Amphetamines Screen Negative, U Benzodiazepines Scrn Negative, U Oth Cocaine Metabols Negative, U Cannabinoids Screen Negative 04/17/17 20:00: WBC 6.3 D, RBC 4.31, Hgb 8.9 L, Hct 30.2 L, MCV 70.1 L, MCH 20.6 L, MCHC 29.5 L, RDW 19.7 H, Plt Count 440, MPV 9.6, Gran % 65.8, Lymph % ( Auto) 20.8 L, [place] % (Auto) 12.1 H, Eos % (Auto) 1.0 L, Baso % (Auto) 0.3, Gran # 4.14, Lymph # 1.3, [place] # 0.8 H, Eos # 0.1, Baso # 0.02 04/17/17 18:04: Urine Color Yellow, Urine Appearance Sl cloudy, Urine pH 6.5, Ur Specific [place] 1.010, Urine Protein Negative, Urine Glucose (UA) Negative, Urine Ketones Negative, Urine Blood Trace-intact H, Urine Nitrate Negative, Urine Bilirubin Negative, Urine Urobilinogen 0.2, Ur Leukocyte Esterase Small H , Urine RBC 0 - 2, Urine WBC 2 - 5, Ur Epithelial Cells Many, Urine Bacteria Mod 04/17/17 17:39: Alcohol, Quantitative < 10 04/17/17 17:39: Salicylates < 1 L, Acetaminophen < 10.0 L 04/17/17 17:39: Sodium 143, Potassium 3.3 L, Chloride 105, Carbon Dioxide 20 L, Anion Gap 21 H, BUN 3 L, Creatinine 0.6 L, Est GFR ( Amer) > 60, Est GFR (Non-Af Amer) > 60, Random Glucose 82, Calcium 9.3, Total Bilirubin 0.5, AST 28 , ALT 29, Alkaline Phosphatase 76, Total Creatine Kinase 139, Total Protein 7.9 , Albumin 4.4, Globulin 3.5, Albumin/Globulin Ratio 1.3 - RAD Interpretation Narrative RAD Interpretations (Text): 04/17/17 22:36 CXR: NAD (Diane Rodriguez) Radiology Orders: 04/17/17 17:04 CHEST PORTABLE [RAD] Stat - Medication Orders Current Medication Orders: Discontinued Medications Sodium Chloride (Sodium Chloride 0.9%) 500 mls @ 1,000 mls/hr IV .Q30M STA Stop: 12/23/17 17:33 Last Admin: 04/17/17 17:04 Dose: 1,000 mls/hr eMAR Start Stop Document 04/17/17 17:04 SF (Rec: 04/17/17 18:10 SF [id number]) Intravenous Solution Start Date 04/17/17 Start Time 17:04 End Date 04/17/17 End time 17:34 Total Infusion Time 30 Ondansetron HCl (Zofran Inj) 4 mg IVP STAT STA Stop: 04/17/17 17:06 Last Admin: 04/17/17 17:30 Dose: IVP Administration Document 04/17/17 17:30 SF (Rec: 04/17/17 21:09 SF [facility] [id number]) Charges for Administration # of IVP Administrations 1 Potassium Chloride (Potassium Chloride Oral Soln) 40 meq PO STAT STA Stop: 04/17/17 19:09 Last Admin: 04/17/17 19:30 Dose: - PA / [employer]ISTS' MODEL / Resident Statement / has reviewed & agrees with the documentation as recorded. <Omayra Garcia PA-C - Last Filed: 04/17/17 20:19> Disposition/Present on Arrival - Present on Arrival Any Indicators Present on Arrival: No History of DVT/PE: No History of Uncontrolled Diabetes: No Urinary Catheter: No History of Decub. Ulcer: No History Surgical Site Infection Following: None - Disposition Have Diagnosis and Disposition been Completed?: Yes <Omayra Garcia PA-C - Last Filed: 04/17/17 20:19> - Present on Arrival Any Indicators Present on Arrival: No History of DVT/PE: No History of Uncontrolled Diabetes: No Urinary Catheter: No History of Decub. Ulcer: No - Disposition Have Diagnosis and Disposition been Completed?: Yes Disposition Time: 22:59 <Diane Rodriguez - Last Filed: 04/17/17 23:03> - Disposition Diagnosis: Suicide attempt by method other than substance overdose, Hypokalemia Disposition: HOME/ ROUTINE Condition: STABLE Discharge Instructions (ExitCare): Depression (ED), Suicide Prevention for Adults (DC) Print Language: UZBEK Additional Instructions: Call Mental Health clinic as recommended by Psychiatry screener during this ER visit. return to emergency as needed or if symptoms returns. Referrals: Dolores Atkins Req, [Primary Care Provider] - Follow up with primary [facility] [Outside] - Follow up with primary [facility] [Outside] - Follow up with primary Forms: [email or web address] (Nepalese)
[2017-04-17 18:20] LABS: URINE COLOR YELLOW (YELLOW)
[2017-04-17 18:27] LABS: URINE APPEARANCE SL CLOUDY (CLEAR); URINE BACTERIA MOD (NEG); URINE EPITHELIAL CELLS MANY /hpf (0-5); URINE RBC 0 - 2 /hpf (0-2)
[2017-04-17 18:42] VITALS: O2SAT 99
[2017-04-17] MEDS ORDERED: Potassium Chloride 40 mEq/30 ml LIQ UD PO STA (19:08)
[2017-04-17 20:22] LABS: BASO # 0.02 K/mm3 (0.0-2.0); BASO % 0.3 % (0.0-3.0); EOS # 0.1 (0.0-0.7); GRAN # 4.14 (1.4-6.5); GRAN % 65.8 % (50.0-68.0); HEMATOCRIT 30.2 % (36.0-48.0); LYMPH # 1.3 (1.2-3.4); LYMPH % 20.8 % (22.0-35.0); MEAN CELL VOLUME 70.1 fl (80.0-105.0); MEAN CORPUSCULAR HEMOGLOBIN 20.6 pg (25.0-35.0); MEAN CORPUSCULAR HGB CONC 29.5 g/dl (31.0-37.0); MEAN PLATELET VOLUME 9.6 fl (7.0-11.0); MONO # 0.8 (0.1-0.6); MONO % 12.1 % (1.0-6.0); RED CELL DISTRIBUTION WIDTH 19.7 % (11.5-14.5); WHITE BLOOD COUNT 6.3 10^3/ul (4.5-11.0)
[2017-04-17 23:11] VITALS: BP 123/65; PULSE 79; RESP 16
--- NOTE | 2017-04-18 09:39 | RAD ---
HISTORY: psych eval COMPARISON: 04/10/2017 FINDINGS: LUNGS: No active pulmonary disease. PLEURA: No significant pleural effusion identified, no pneumothorax apparent. CARDIOVASCULAR: Normal. OSSEOUS STRUCTURES: No significant abnormalities. VISUALIZED UPPER ABDOMEN: Normal. OTHER FINDINGS: None. IMPRESSION: No active disease. No significant interval change compared to the prior examination(s). Concordant results with the preliminary interpretation rendered by the emergency department physician procedure.
--- NOTE | 2017-04-18 09:54 | CARD ---
APPROVED REPORT EKG Measurement Heart [id number] VT [id number] [id number] <Conclusion> Sinus tachycardia Nonspecific ST abnormality and prolonged QTc, new
--- NOTE | 2017-04-18 10:01 | CARD ---
APPROVED REPORT EKG Measurement Heart [id number] [place] [id number] <Conclusion> Normal sinus rhythm with sinus arrhythmia Poor R wave progression V 1 -3, probably due to lead positioning. NSSTW changes Mildly prolonged QTc
== END 2017-04-17 23:12 | disposition home or self-care (01) ==
LOC: ED 16:27
DX: T14.91XA Suicide attempt, initial encounter (principal); X83.8XXA Intentional self-harm by other specified means, initial encounter; E87.6 Hypokalemia
CPT/HCPCS: 71010; 80053; 81001; 82550; 84703; 85025; 87086; 93005; 96374; 99285; G0480; J7040